=== PATIENT | female | born 1960 | race African-American/Black ===

== ENCOUNTER → 2017-11-18 | Outpatient (CLI) | payer OTHER ==
[2017-11-18 16:50] LABS: ADD MAN DIFF? NO
[2017-11-18 16:54] LABS: BASO % 0 % (0-3); EOS # 0.1 x10^3/uL (0.0-0.7); EOS % 2 % (0-3); HEMATOCRIT 41.2 % (36.0-47.0); HEMOGLOBIN 13.7 g/dL (12.0-15.5); LYMPH # 1.6 x10^3/uL (1.0-4.8); LYMPH % 23 % (24-48); MEAN CORPUSCULAR HEMOGLOBIN 28 pg (25-35); MEAN CORPUSCULAR HGB CONC 33 g/dL (31-37); MEAN CORPUSCULAR VOLUME 85 fL (79-100); MONO # 0.7 x10^3/uL (0.0-1.1); MONO % 10 % (0-9); NEUT # 4.5 x10^3uL (1.8-7.7); NEUT % 66 % (31-73); PLATELET COUNT 210 x10^3/uL (140-400); RED BLOOD COUNT 4.86 x10^6/uL (3.50-5.40); RED CELL DISTRIBUTION WIDTH 14.8 % (11.5-14.5); WHITE BLOOD COUNT 6.9 x10^3/uL (4.0-11.0)
[2017-11-18 17:10] LABS: BARBITURATES NEG (NEG); BENZODIAZEPINES NEG (NEG); CANNABINOIDS NEG (NEG); COCAINE NEG (NEG); METHADONE NEG (NEG); OPIATES NEG (NEG); PHENCYCLIDINE NEG (NEG)
[2017-11-18 17:18] LABS: AMPHETAMINE/METHAMPHETAMINE NEG (NEG); ETHANOL, URINE NEG (NEG)
[2017-11-18 17:23] LABS: ALBUMIN 3.6 g/dL (3.4-5.0); ALK PHOS 90 U/L (46-116); ALT (SGPT) 21 U/L (14-59); ANION GAP 10 (6-14); AST (SGOT) 14 U/L (15-37); BLOOD UREA NITROGEN 16 mg/dL (7-20); BUN/CREATININE RATIO 12 (6-20); CALCIUM 9.1 mg/dL (8.5-10.1); CARBON DIOXIDE 27 mmol/L (21-32); CHLORIDE 104 mmol/L (98-107); CREATININE 1.3 mg/dL (0.6-1.0); GFR 50.9; GLUCOSE 128 mg/dL (70-99); POTASSIUM 3.9 mmol/L (3.5-5.1); SODIUM 141 mmol/L (136-145); TOTAL BILIRUBIN 0.5 mg/dL (0.2-1.0); TOTAL PROTEIN 7.3 g/dL (6.4-8.2)
[2017-11-18 17:34] LABS: THYROID STIM HORMONE (TSH) 1.084 uIU/mL (0.358-3.74)
[2017-11-18 18:18] LABS: VITAMIN-B12 561 pg/mL (247-911)
== END | disposition home or self-care (01) ==
LOC: LAB 16:36
DX: R56.9 Unspecified convulsions (principal)
CPT/HCPCS: 36415; 80053; 80307; 82607; 84443; 85025

== ENCOUNTER → 2017-11-26 | Outpatient (CLI) | payer OTHER | END | disposition home or self-care (01) | LOC: RT 10:53 | DX: R56.9 Unspecified convulsions (principal); I12.9 Hypertensive chronic kidney disease with stage 1 through stage 4 chronic kidney disease, or unspecified chronic kidney disease; E11.22 Type 2 diabetes mellitus with diabetic chronic kidney disease; K21.9 Gastro-esophageal reflux disease without esophagitis; E78.5 Hyperlipidemia, unspecified | CPT/HCPCS: 95816 ==

== ENCOUNTER → 2018-04-21 | Outpatient (CLI) | payer OTHER ==
[2017-02-25 15:00] VITALS: BP 122/71
[~2018-04-21] MED LIST: AMLO10TA6 PO; AMLO1TAB95 PO; ASPI-612 PO; ATOR20TA58 PO; CLOB15CR TP; DOXY50CA PO; ERGO500027 PO; HYDR25TA PO; IBUP200C PO; LOSA-73 PO; METF500T16 PO; MULT-208 PO; SPIR100T4 PO; [UNRECOGNIZED DRUG - OTHER] TOP
--- NOTE | 2018-04-21 15:41 | RAD ---
DATE: 04/21/2018 EXAM: DIGITAL SCREEN BILAT W/CAD HISTORY: Routine screening. COMPARISON: Previous mammogram from 2015. This study was interpreted with the benefit of Computerized Aided Detection (CAD). FINDINGS: Breast Density: SCATTERED The breast parenchyma shows scattered fibroglandular densities. Breast parenchyma level B. The skin and nipples are within normal limits. No suspicious calcifications, spiculated mass or area of architectural distortion. IMPRESSION: No mammographic evidence of malignancy. BI-RADS CATEGORY: 2 BENIGN FINDING(S) RECOMMENDED FOLLOW-UP: 12M 12 MONTH FOLLOW-UP PQRS compliance statement: Patient information was entered into a reminder system with a target due date for the next mammogram. Mammography is a sensitive method for finding small breast cancers, but it does not detect them all and is not a substitute for careful clinical examination. A negative mammogram does not negate a clinically suspicious finding and should not result in delay in biopsying a clinically suspicious abnormality. "Our facility is accredited by the [employer] Mammography Program."
== END | disposition home or self-care (01) ==
LOC: MAMMO 12:48
PROVIDERS: ATTEND Nurse Practitioner
DX: Z12.31 Encounter for screening mammogram for malignant neoplasm of breast (principal)
CPT/HCPCS: 77067

== ENCOUNTER → 2018-06-02 | Outpatient (CLI) | payer OTHER ==
[2018-04-29 09:50] VITALS: BP 127/65
[~2018-06-02] MED LIST changes: +LEVE500T56 PO
--- NOTE | 2018-06-02 16:57 | RAD ---
EXAM: Carotid Doppler sonogram. HISTORY: Syncope. TECHNIQUE: Siu scale and color Doppler sonographic evaluation of the neck with spectral waveform analysis was performed and static images are submitted for review. FINDINGS: There is mild intimal thickening involving the common carotid arteries and mild atherosclerotic plaque within the carotid bifurcations. The peak systolic velocity within the right common carotid artery is 95 cm/sec. The peak systolic velocity within the right internal carotid artery is 96 cm/sec and the end diastolic velocity within the right internal carotid artery is 46 cm/sec. The right ICA/CCA ratio is 1.1. The peak systolic velocity within the left common carotid artery is 89 cm/sec. The peak systolic velocity within the left internal carotid artery is 113 cm/sec and the end diastolic velocity within the left internal carotid artery is 50 cm/sec. The left ICA/CCA ratio is 1.3. There is normal antegrade flow within both vertebral arteries. IMPRESSION: 1. Elevated and diastolic velocities within the internal carotid arteries, a finding which can be seen with 50-69% stenosis. The peak systolic velocities within the internal carotid arteries do not suggest greater than 50% stenosis. 2. Mild intimal thickening involving the common carotid arteries and mild atherosclerotic plaque within the carotid bifurcations. PQRS Compliance Statement - Stenosis calculations for CT, MR and conventional angiography are based upon measurement of the distal ICA diameter in accordance with the NASCET methodology. Stenosis calculations for carotid ultrasound studies are derived from validated velocity criteria which are known to correlate with the NASCET methodology. Electronically signed by: Barbara Vidal MD (06/02/2018 4:53 PM) [facility]
== END | disposition home or self-care (01) ==
LOC: US 15:32
PROVIDERS: ATTEND Pediatrics
DX: I70.8 Atherosclerosis of other arteries (principal)
CPT/HCPCS: 93880

== ENCOUNTER → 2018-06-03 | Outpatient (CLI) | payer OTHER ==
[2018-04-29 09:50] VITALS: BP 127/65
--- NOTE | 2018-06-06 17:39 | EEG ---
DATE OF SERVICE: 06/03/2018 EEG NUMBER: OBJECTIVE: This is a 57-year-old female patient with history of seizure or seizure-like episodes. EEG was requested to help evaluate seizure activity. METHODS: Twenty electrodes were applied according to the international 10-20 electrode placement system. EKG monitoring, hyperventilation, intermittent photic stimulation, monopolar and bipolar montages are routinely utilized. The record was obtained on a digital system with video monitoring. FINDINGS: 1. Background: The patient was recorded in the awake, drowsy, and sleep states. The overall background amplitude is 5-15 microvolts. A posterior dominant rhythm of 8-9 Hz is observed. 2. Abnormalities: No specific epileptiform discharge or electrographic seizure is seen. No focal or diffuse slowing. 3. Activation: Hyperventilation was performed with good efforts and normal response. Intermittent photic stimulation was performed with photic driving. No specific epileptiform discharge or electrographic seizure induced by hyperventilation or intermittent photic stimulation. IMPRESSION: This EEG is within the normal limits of the study for the awake, drowsy, and sleep states. No focal, lateralizing, specific epileptiform discharge or electrographic seizure is seen. ALIYAH WALTERS MD DR: CITLALLI/james JOB#: [id number] / [id number] ANGELA
== END | disposition home or self-care (01) ==
LOC: RT 09:01
PROVIDERS: ATTEND Psychiatry & Neurology Neurology
DX: R56.9 Unspecified convulsions (principal)
CPT/HCPCS: 95816

== ENCOUNTER 2018-12-13 22:44 | Emergency (ER) | payer OTHER ==
[~2018-12-13] VITALS: Ht 157.5 cm; Wt 90.7 kg
[~2018-12-13 22:44] MED LIST changes: -AMLO10TA6 PO; +AMLO10TA8 PO
[2018-12-13 23:27] LABS: BASO % 0 % (0-3); EOS # 0.1 x10^3/uL (0.0-0.7); EOS % 1 % (0-3); HEMATOCRIT 41.7 % (36.0-47.0); HEMOGLOBIN 13.9 g/dL (12.0-15.5); LYMPH # 1.8 x10^3/uL (1.0-4.8); LYMPH % 22 % (24-48); MEAN CORPUSCULAR HEMOGLOBIN 28 pg (25-35); MEAN CORPUSCULAR HGB CONC 34 g/dL (31-37); MEAN CORPUSCULAR VOLUME 83 fL (79-100); MONO # 0.8 x10^3/uL (0.0-1.1); MONO % 9 % (0-9); NEUT # 5.5 x10^3/uL (1.8-7.7); NEUT % 67 % (31-73); PLATELET COUNT 163 x10^3/uL (140-400); RED BLOOD COUNT 5.05 x10^6/uL (3.50-5.40); RED CELL DISTRIBUTION WIDTH 16.1 % (11.5-14.5); WHITE BLOOD COUNT 8.2 x10^3/uL (4.0-11.0)
[2018-12-13] MEDS ORDERED: IV NORMAL SALINE 1000ML BAG 1,000 ML IV ONE (23:30)
[2018-12-13] MEDS ORDERED: ASPIRIN 325 MG TABLET PO ONE (23:30)
[2018-12-13 23:37] LABS: PROTHROMBIN TIME PATIENT 13.4 SEC (11.7-14.0)
--- NOTE | 2018-12-13 23:52 | RAD ---
PQRS Compliance Statement: One or more of the following individualized dose reduction techniques were utilized for this examination: 1. Automated exposure control 2. Adjustment of the mA and/or kV according to patient size 3. Use of iterative reconstruction technique CT head without contrast 12/13/2018 11:24 PM INDICATION: Headache COMPARISON: CT head April 23, 2018 TECHNIQUE: Multiple axial CT images of the head were obtained from skull base through the vertex without intravenous contrast. FINDINGS: Head: Ventricles, sulci and basal cisterns are within normal limits. There is no hydrocephalus. Siu-white matter differentiation is normal. There is no acute intracranial hemorrhage. There is no mass, mass effect or midline shift. Posterior fossa is normal in appearance. Visualized portions of the orbits are normal with exception of bilateral lens replacement. Paranasal sinuses are well aerated. Mastoid air cells are well aerated. Scalp and calvaria are normal. IMPRESSION: No acute intracranial hemorrhage. Electronically signed by: Madison Hui MD (12/13/2018 11:49 PM) [facility]
[2018-12-14] MEDS ORDERED: diphenhydrAMINE 50 MG/ML VIAL IVP ONE
[2018-12-14] MEDS ORDERED: METOCLOPRAMIDE HCL 10 MG/2 ML VIAL. IV ONE
[2018-12-14] MEDS ORDERED: KETOROLAC 15 MG/ML VIAL. IV ONE
[2018-12-14] MEDS ORDERED: DEXAMETHASONE SOD PHOS 20 MG/5 ML VIAL. IV ONE
[2018-12-14] MEDS ORDERED: LABETALOL 20 MG/4 ML DISP.SYRIN. IVP ONE
[2018-12-14 00:33] LABS: CREATININE 1.3 mg/dL (0.6-1.0); GFR 50.7
[2018-12-14 00:39] LABS: ALBUMIN 3.4 g/dL (3.4-5.0); ALBUMIN/GLOBULIN RATIO 0.9 (1.0-1.7); MAGNESIUM 1.9 mg/dL (1.8-2.4); TOTAL BILIRUBIN 0.5 mg/dL (0.2-1.0); TOTAL PROTEIN 7.1 g/dL (6.4-8.2)
[2018-12-14 01:15] LABS: BILIRUBIN,URINE NEGATIVE (NEG); CLARITY,URINE CLOUDY; COLOR,URINE YELLOW; NITRITE,URINE NEGATIVE (NEG); PH,URINE 7.5; PROTEIN,URINE NEGATIVE (NEG-TRACE); UROBILINOGEN,URINE 0.2 mg/dL (0.2 mg/dL)
[2018-12-14 01:27] LABS: SQUAMOUS EPITHELIAL CELL,UR MOD /LPF
[2018-12-14 01:28] LABS: AMORPHOUS SEDIMENT,UR PRESENT /HPF; BACTERIA,URINE FEW /HPF (0-FEW); RBC,URINE RARE /HPF (0-2)
[2018-12-14 01:55] VITALS: BP 139/62
[2018-12-14] MEDS ORDERED: BUTA1TAB23 PO (02:08)
[2018-12-14] MEDS ORDERED: ONDA4TAB12 PO (02:08)
--- NOTE | 2018-12-14 02:08 | PHYS DOC ---
Past Medical History Past Medical History: Hypertension, Other Additional Past Medical Histor: hypoglycemia Past Surgical History: , Hysterectomy, Other Additional Past Surgical Histo: hiatal hernia, D&C, UMBILICAL HERNIA REPAIR A CHILD Alcohol Use: None Drug Use: None Adult General Chief Complaint Chief Complaint: HEADACHE HPI HPI Patient is a 58 year old [f__sex] who presents with [] Review of Systems Review of Systems Constitutional: Denies fever or chills [] Eyes: Denies change in visual acuity, redness, or eye pain [] HENT: Denies nasal congestion or sore throat [] Respiratory: Denies cough or shortness of breath [] Cardiovascular: No additional information not addressed in HPI [] GI: Denies abdominal pain, nausea, vomiting, bloody stools or diarrhea [] : Denies dysuria or hematuria [] Musculoskeletal: Denies back pain or joint pain [] Integument: Denies rash or skin lesions [] Neurologic: Denies headache, focal weakness or sensory changes [] Endocrine: Denies polyuria or polydipsia [] All other systems were reviewed and found to be within normal limits, except as documented in this note. Current Medications Current Medications Current Medications Medications (Trade) Dose Ordered Sig/[place] Start Time Stop Time Status Last Admin Dose Admin Aspirin (Margy Aspirin) 325 mg 1X ONCE 12/13/18 23:30 12/13/18 23:31 DC 12/13/18 23:21 325 MG Dexamethasone Sodium Phosphate (Decadron) 10 mg 1X ONCE 12/14/18 00:00 12/14/18 00:01 DC 12/14/18 00:03 10 MG Diphenhydramine HCl (Benadryl) 25 mg 1X ONCE 12/14/18 00:00 12/14/18 00:01 DC 12/14/18 00:03 25 MG Ketorolac Tromethamine (Toradol 15mg Vial) 15 mg 1X ONCE 12/14/18 00:00 12/14/18 00:01 DC 12/14/18 00:03 15 MG Labetalol HCl (Normodyne Iv Push) 10 mg 1X ONCE 12/14/18 00:00 12/14/18 00:01 DC 12/14/18 00:03 10 MG Metoclopramide HCl (Reglan Vial) 10 mg 1X ONCE 12/14/18 00:00 12/14/18 00:01 DC 12/14/18 00:03 10 MG Sodium Chloride 1,000 ml @ 1,000 mls/hr 1X ONCE 12/13/18 23:30 12/14/18 00:29 DC 12/13/18 23:21 1,000 MLS/HR Allergies Allergies Allergies Coded Allergies Type Severity Reaction Last Updated Verified codeine Allergy Intermediate 03/25/15 Yes meperidine Allergy Intermediate 07/26/14 Yes sertraline Allergy Intermediate SEI 07/26/14 Yes Physical Exam Physical Exam Constitutional: Well developed, well nourished, no acute distress, non-toxic appearance. [] HENT: Normocephalic, atraumatic, bilateral external ears normal, oropharynx moist, no oral exudates, nose normal. [] Eyes: PERRLA, EOMI, conjunctiva normal, no discharge. [] Neck: Normal range of motion, no tenderness, supple, no stridor. [] Cardiovascular:Heart rate regular rhythm, no murmur [] Lungs & Thorax: Bilateral breath sounds clear to auscultation [] Abdomen: Bowel sounds normal, soft, no tenderness, no masses, no pulsatile masses. [] Skin: Warm, dry, no erythema, no rash. [] Back: No tenderness, no CVA tenderness. [] Extremities: No tenderness, no cyanosis, no clubbing, ROM intact, no edema. [] Neurologic: Alert and oriented X 3, normal motor function, normal sensory function, no focal deficits noted. [] Psychologic: Affect normal, judgement normal, mood normal. [] Current Patient Data Vital Signs Vital Signs Date Time Temp Pulse Resp B/P (MAP) Pulse Ox O2 Delivery O2 Flow Rate FiO2 12/14/18 01:55 85 14 96 12/14/18 00:03 189/90 12/13/18 22:53 98.2 98.2 Lab Values Laboratory Tests Test 12/13/18 23:20 12/14/18 00:10 12/14/18 01:05 White Blood Count 8.2 x10^3/uL (4.0-11.0) Red Blood Count 5.05 x10^6/uL (3.50-5.40) Hemoglobin 13.9 g/dL (12.0-15.5) Hematocrit 41.7 % (36.0-47.0) Mean Corpuscular Volume 83 fL (79-100) Mean Corpuscular Hemoglobin 28 pg (25-35) Mean Corpuscular Hemoglobin Concent 34 g/dL (31-37) Red Cell Distribution Width 16.1 % (11.5-14.5) H Platelet Count 163 x10^3/uL (140-400) Neutrophils (%) (Auto) 67 % (31-73) Lymphocytes (%) (Auto) 22 % (24-48) L Monocytes (%) (Auto) 9 % (0-9) Eosinophils (%) (Auto) 1 % (0-3) Basophils (%) (Auto) 0 % (0-3) Neutrophils # (Auto) 5.5 x10^3/uL (1.8-7.7) Lymphocytes # (Auto) 1.8 x10^3/uL (1.0-4.8) Monocytes # (Auto) 0.8 x10^3/uL (0.0-1.1) Eosinophils # (Auto) 0.1 x10^3/uL (0.0-0.7) Basophils # (Auto) 0.0 x10^3/uL (0.0-0.2) Prothrombin Time 13.4 SEC (11.7-14.0) Prothrombin Time INR 1.1 (0.8-1.1) Activated Partial Thromboplast Time 23 SEC (24-38) L Sodium Level 143 mmol/L (136-145) Potassium Level 4.0 mmol/L (3.5-5.1) Chloride Level 105 mmol/L (98-107) Carbon Dioxide Level 29 mmol/L (21-32) Anion Gap 9 (6-14) Blood Urea Nitrogen 20 mg/dL (7-20) Creatinine 1.3 mg/dL (0.6-1.0) H Estimated GFR (Cockcroft-Gault) 50.7 BUN/Creatinine Ratio 15 (6-20) Glucose Level 134 mg/dL (70-99) H Calcium Level 9.0 mg/dL (8.5-10.1) Magnesium Level 1.9 mg/dL (1.8-2.4) Total Bilirubin 0.5 mg/dL (0.2-1.0) Aspartate Amino Transferase (AST) 14 U/L (15-37) L Alanine Aminotransferase (ALT) 20 U/L (14-59) Alkaline Phosphatase 89 U/L (46-116) Creatine Kinase 117 U/L (26-192) Creatine Kinase MB (Mass) 0.9 ng/mL (0.0-3.6) Creatine Kinase MB Relative Index 0.8 % (0-4) Troponin I Quantitative < 0.017 ng/mL (0.000-0.055) JJ-Rzy-I-Type Natriuretic Peptide 46 pg/mL (0-124) Total Protein 7.1 g/dL (6.4-8.2) Albumin 3.4 g/dL (3.4-5.0) Albumin/Globulin Ratio 0.9 (1.0-1.7) L Lipase 118 U/L (73-393) Urine Collection Type Unknown Urine Color Yellow Urine Clarity Cloudy Urine pH 7.5 Urine Specific [place] 1.015 Urine Protein Negative mg/dL (NEG-TRACE) Urine Glucose (UA) Negative mg/dL (NEG) Urine Ketones (Stick) Negative mg/dL (NEG) Urine Blood Negative (NEG) Urine Nitrite Negative (NEG) Urine Bilirubin Negative (NEG) Urine Urobilinogen Dipstick 0.2 mg/dL (0.2 mg/dL) Urine Leukocyte Esterase Moderate (NEG) Urine RBC Rare /HPF (0-2) Urine WBC 11-20 /HPF (0-4) Urine Squamous Epithelial Cells Mod /LPF Urine Amorphous Sediment Present /HPF Urine Bacteria Few /HPF (0-FEW) Urine Mucus Slight /LPF Laboratory Tests 12/13/18 23:20 Laboratory Tests 12/14/18 00:10 EKG EKG EKG obtained 23:04 and read 23:05. No ST-elevation noted.[] Radiology/Procedures Radiology/Procedures [] Course & Med Decision Making Course & Med Decision Making Pertinent Labs and Imaging studies reviewed. (See chart for details) [] Dragon Disclaimer Dragon Disclaimer This electronic medical record was generated, in whole or in part, using a voice recognition dictation system. Departure Departure Impression: Primary Impression: Headache Additional Impression: Atypical chest pain Disposition: HOME, SELF-CARE Condition: IMPROVED Referrals: BAUDILIO STERLING MD (PCP) Patient Instructions: Chest Pain (Nonspecific), [id number], Headache, FAQs Scripts Butalb/Acetaminophen/Caffeine ([id number] 50-325-40) 1 Each Tablet 1 EACH PO Q6HRS PRN for HEADACHE, #14 TAB Prov: JOSSELYN MARKHAM DO 12/14/18 Ondansetron (ONDANSETRON ODT) 4 Mg Tab.rapdis 1 TAB PO PRN Q6-8HRS PRN for NAUSEA, #16 TAB Prov: JOSSELYN MARKHAM DO 12/14/18 Problem Qualifiers Primary Impression: Headache Headache type: unspecified Headache chronicity pattern: acute headache Intractability: not intractable Qualified Codes: R51 - Headache JOSSELYN MARKHAM DO Dec 14, 2018 02:08
--- NOTE | 2018-12-14 06:23 | EKG ---
[facility] [address] [place] [address] Test Date: 2018-12-13 Test Time: 23:04:57 Pat Name: ANASTASIA GOLDMAN Department: Room: Gender: F [employer] Person: : 1960 Requested By: JOSSELYN MARKHAM Order Number: [id number] Reading MD: Measurements Intervals [place] Rate: 73 P: 47 CA: 176 QRS: 6 QRSD: 78 T: 51 QT: 392 QTc: 436 Interpretive Statements SINUS RHYTHM NORMAL ECG RI6.01 No previous ECG available for comparison
--- NOTE | 2018-12-14 08:07 | RAD ---
CHEST PA LATERAL History: Chest pain Comparison: 04/21/2018 portable chest x-ray exam. Findings: The cardiomediastinal silhouette is normal. Pulmonary vasculature is normal. The lungs are clear. No pleural effusion or pneumothorax is seen. There is no acute bone abnormality. IMPRESSION: No acute cardiopulmonary process. Electronically signed by: Glen Sebastian MD (12/14/2018 8:04 AM) [facility]
== END 2018-12-14 02:24 | disposition home or self-care (01) ==
LOC: ER 22:44
DX: R51 Headache (principal); R07.89 Other chest pain; I10 Essential (primary) hypertension; Z90.710 Acquired absence of both cervix and uterus; Z98.890 Other specified postprocedural states; Z79.82 Long term (current) use of aspirin; Z88.5 Allergy status to narcotic agent; Z88.8 Allergy status to other drugs, medicaments and biological substances
CPT/HCPCS: 36415; 70450; 71046; 80053; 81001; 82553; 83690; 83735; 83880; 84484; 85025; 85610; 85730; 87086; 93005; 96374; 96375; 99285; J1100; J1200; J1885; J2765; J3490; J7030

== ENCOUNTER → 2018-12-19 | Outpatient (CLI) | payer OTHER ==
[2018-12-14 01:55] VITALS: BP 139/62
[~2018-12-19] MED LIST changes: +BUTA1TAB23 PO; +ONDA4TAB12 PO
--- NOTE | 2018-12-21 14:07 | EEG ---
DATE OF SERVICE: 12/19/2018 EEG NUMBER: [id number] OBJECTIVE: This is a 58-year-old -[place] female patient with history of seizure. EEG was requested to evaluate seizure activity. METHODS: Twenty electrodes were applied according to the international 10-20 electrode placement system. EKG monitoring, hyperventilation, intermittent photic stimulation, monopolar and bipolar montages are routinely utilized. The record was obtained on a digital system with video monitoring. FINDINGS: 1. Background: The patient was recorded in the awake and drowsy states. No actual sleep state was recorded. The overall background amplitude is 5-15 microvolts. A posterior dominant rhythm of 8 Hz is observed. 2. Abnormalities: No specific epileptiform discharge or electrographic seizure is seen. No focal or diffuse slowing. 3. Activation: Hyperventilation was performed with good efforts and normal response. Intermittent photic stimulation was performed with photic driving. No specific epileptiform discharge or electrographic seizure induced by hyperventilation or intermittent photic stimulation. IMPRESSION: This EEG is a normal study for the awake and drowsy states. No actual sleep state was recorded. No focal, lateralizing, specific epileptiform discharge or electrographic seizure is seen. ALIYAH WALTERS MD DR: Bernard JOB#: [id number] / [id number] ANGELA
== END | disposition home or self-care (01) ==
LOC: RT 08:01
PROVIDERS: ATTEND Psychiatry & Neurology Neurology
DX: R56.9 Unspecified convulsions (principal)
CPT/HCPCS: 95816

== ENCOUNTER → 2019-04-24 | Outpatient (CLI) | payer OTHER ==
--- NOTE | 2019-04-24 10:19 | RAD ---
DATE: April 24, 2019 EXAM: DIGITAL SCREEN BILAT W/CAD HISTORY: Screening study. COMPARISON: 2014 and 2017 This study was interpreted with the benefit of Computerized Aided Detection (CAD). FINDINGS: Breast Density: FATTY The breast parenchyma is primarily fatty replaced. Breast parenchyma level density A.. There are no dominant suspicious masses, suspicious microcalcifications or evidence of architectural distortion. IMPRESSION: No mammographic indicators for malignancy. BI-RADS CATEGORY: 1 NEGATIVE RECOMMENDED FOLLOW-UP: 12M 12 MONTH FOLLOW-UP PQRS compliance statement: Patient information was entered into a reminder system with a target due date April 25, 2020 for the next mammogram. Mammography is a sensitive method for finding small breast cancers, but it does not detect them all and is not a substitute for careful clinical examination. A negative mammogram does not negate a clinically suspicious finding and should not result in delay in biopsying a clinically suspicious abnormality. "Our facility is accredited by the [employer] Mammography Program." The patient's breast density may affect the ability of mammography to detect breast cancer. There are 4 categories of breast density, A, B, C and D. Breast density A means that most of the breast tissue is replaced with adipose tissue and therefore is not dense. Breast density B means that the breast tissue is mildly dense and scattered. Breast density C means that the breast tissue is heterogeneously dense. Breast density D means that the breast tissue is very dense. Breast densities especially C and D may decrease the sensitivity of mammography to detect breast cancer. Therefore, the patient may benefit from 3-D breast mammography (3D breast tomography) as a part of their screening mammogram. Insurance may or may not pay for this additional imaging. The patient's breast density based on today's mammogram is category A.
== END | disposition home or self-care (01) ==
LOC: MAMMO 09:47
PROVIDERS: ATTEND Nurse Practitioner
DX: Z12.31 Encounter for screening mammogram for malignant neoplasm of breast (principal)
CPT/HCPCS: 77067

== ENCOUNTER 2020-01-03 18:35 | Inpatient (IN) | payer OTHER ==
[~2020-01-03] VITALS: Ht 160 cm; Wt 100.8 kg
[~2020-01-03 18:35] MED LIST changes: -ASPI-612 PO; +ASPI-886 PO
--- NOTE | 2020-01-03 22:31 | PHYS DOC ---
Past Medical History Past Medical History: CAD, High Cholesterol, Hypertension, Seizure, Other Additional Past Medical Histor: hypoglycemia Past Surgical History: , Hysterectomy, Other Additional Past Surgical Histo: hiatal hernia, D&C, UMBILICAL HERNIA REPAIR A CHILD Smoking Status: Never Smoker Alcohol Use: None Drug Use: None General Adult EDM: Chief Complaint: NAUSEA/VOMITING/DIARRHA HPI: HPI: Patient is a 59 year old female who presents with 2 days of nausea and vomiting and cold chills. She states she is unable to keep anything down. Patient denies abdominal pain, diarrhea, constipation, dysuria, back pain, dizziness, headache, syncope, vision changes, numbness or tingling, shortness of breath, cough. She states that she also has been having mid chest pressure. Patient states nothing better. She states that she has had a cardiac cath in the past and they told her that she had small veins in her heart. Patient has a history of high cholesterol, hypertension, CAD, hypoglycemia, seizure, hysterectomy, hiatal hernia. She rates her discomfort at a 8 out of 10. Review of Systems: Review of Systems: Constitutional: Denies fever. + chills. [] Eyes: Denies change in visual acuity. [] HENT: Denies nasal congestion or sore throat. [] Respiratory: Denies cough or shortness of breath. [] Cardiovascular: Mid chest pain or denies edema. [] GI: Denies abdominal pain. + nausea, +vomiting, denies bloody stools or diarrhea. [] : Denies dysuria. [] Musculoskeletal: Denies back pain or joint pain. Generalized weakness [] Integument: Denies rash. [] Neurologic: Denies headache, focal weakness or sensory changes. [] Endocrine: Denies polyuria or polydipsia. [] Lymphatic: Denies swollen glands. [] Psychiatric: Denies depression or anxiety. [] Heart Score: HEART Score for Chest Pain: HEART Score for Chest Pain Response (Comments) Value History Slighlty/Non-Suspicious 0 ECG Normal 0 Age >45 - < 65 1 Risk Factors >3 Risk Factors or Hx CAD 2 Troponin < Normal Limit 0 Total 3 Risk Factors: Risk Factors: DM, Current or recent (<one month) smoker, HTN, HLP, family history of CAD, obesity. Risk Scores: Score 0 - 3: 2.5% MACE over next 6 weeks - Discharge Home Score 4 - 6: 20.3% MACE over next 6 weeks - Admit for Clinical Observation Score 7 - 10: 72.7% MACE over next 6 weeks - Early Invasive Strategies Allergies: Allergies: Allergies Coded Allergies Type Severity Reaction Last Updated Verified codeine Allergy Intermediate 03/25/15 Yes meperidine Allergy Intermediate 07/26/14 Yes sertraline Allergy Intermediate SEI 07/26/14 Yes Physical Exam: PE: Constitutional: Well developed, well nourished, no acute distress, non-toxic appearance. [] HENT: Normocephalic, atraumatic, bilateral external ears normal, oropharynx moist, no oral exudates, nose normal. [] Eyes: PERRLA, EOMI, conjunctiva normal, no discharge. [] Neck: Normal range of motion, no tenderness, supple, no stridor. [] Cardiovascular:Heart rate regular rhythm, no murmur [] Lungs & Thorax: Bilateral upper breath sounds clear and lower diminished to auscultation [] Abdomen: Bowel sounds normal, soft, no tenderness, no masses, no pulsatile masses. [] Skin: Warm, dry, no erythema, no rash. [] Back: No tenderness, no CVA tenderness. [] Extremities: No tenderness, no cyanosis, no clubbing, ROM intact, no edema. [] Neurologic: Alert and oriented X 3, normal motor function, normal sensory function, no focal deficits noted. [] Psychologic: Affect normal, judgement normal, mood normal. [] Current Patient Data: Vital Signs: Vital Signs Date Time Temp Pulse Resp B/P (MAP) Pulse Ox O2 Delivery O2 Flow Rate FiO2 01/03/20 20:00 98.2 76 18 156/84 (108) 98 Room Air 98.2 EKG: EK and read by Dr Bustamante as NSR and no STEMI[] Radiology/Procedures: Radiology/Procedures: [] Impression: [facility] [address] [place] [address] IMAGING REPORT Signed PATIENT: ANASTASIA GOLDMAN EACCOUNT: [id number] : 1960 LOCATION: ER AGE: 59 SEX: F EXAM STATUS: REG ER ORD. PHYSICIAN: RASHAD LIANG APRN REASON: NAUSEA, VOMITING PROCEDURE: CT ABD PELV W/ IV CONTRST ONLY Study: CT abdomen/pelvis with intravenous contrast Indication: Nausea and vomiting. Comparison: None recently. Technique: Helical CT imaging performed of the abdomen and pelvis after the intravenous administration of 60 cc Omnipaque 300 contrast. Sagittal and coronal reformats were obtained. One or more of the following individualized dose reduction techniques were utilized for this examination: 1. Automated exposure control 2. Adjustment of the mA and/or kV according to patient size 3. Use of iterative reconstruction technique. Findings: Chest: Mild basilar volume loss. Liver: Hepatic steatosis. Gallbladder/Biliary Tree: No findings by CT to suggest acute cholecystitis. Pancreas: No mass, ductal dilatation or findings of pancreatitis. Spleen: Normal in size. Adrenal Glands: Unremarkable. Kidneys/Ureters/Bladder: No complex cyst or mass. A small focus of mineralization within the right aspect of the deep pelvis, image 75 series 2, is favored a phlebolith and located anterior to the ureter. No collecting system dilatation on the right to suggest an obstructing stone. Unremarkable left collecting system. Normal bladder. Reproductive Organs: Absent uterus. No adnexal mass. Colon: A few diverticuli without diverticulitis. Wall thickening of the descending colon favored from collapse. No pericolonic inflammation to suggest a colitis. Appendix: Normal. Small Bowel: Nonobstructed. Stomach: Unremarkable. Vasculature: Nonaneurysmal aorta. Mild calcific atherosclerosis. Patent central portal veins and superior mesenteric vein. Lymph Nodes: Within normal limits. Peritoneum and Body Wall: No free fluid or gas. Bones: Scattered degenerative changes. No acute or aggressive osseous process. Miscellaneous: None. Impression: 1. No acute abnormality seen to account for the patient's symptoms. 2. Hepatic steatosis. Electronically signed by: HELENE GRAF MD (01/04/2020 12:40 AM) [id number] DICTATED and SIGNED BY: HELENE GRAF MD DATE: 01/04/20 0040 Course & Med Decision Making: Course & Med Decision Making Pertinent Labs and Imaging studies reviewed. (See chart for details) COVID-19 CRITERIA: The patient was evaluated during the global COVID-19 pandemic, and that diagnosis was suspected/considered upon their initial present ation. Their evaluation, treatment and testing was consistent with current guidelines for patients who present with complaints or symptoms that may be related to COVID-19. See HPI. Alert and oriented x4. She states she is too weak to ambulate. Speaks in full clear sentences. No extremity edema. Abdomen is soft and nontender. Skin is pink warm and dry. Blood work shows no acute findings. Chest xray read by Dr Bustamante as no acute findings. CT abdomen pelvis shows no acute findings. Due to patient's weakness and continued nausea and vomiting and chest pain with a history of CAD patient will be admitted to the hospitalist. [] Dragon Disclaimer: Dragon Disclaimer: This electronic medical record was generated, in whole or in part, using a voice recognition dictation system. COVID-19 Patient Risks: Age 65 or older: No Sign of co-morbidity: Yes Exp to person + for COVID: No Exp to PUI: No Travel from affected area: No Lower respiratory symptoms: No Fever: No Other: Yes (nausea, vomiting, chills) PPE Use: Full PPE with N95 mask or PAPR: Yes Departure Departure Impression: Primary Impression: Person under investigation for COVID-19 Additional Impressions: Vomiting Qualified Codes: R11.2 - Nausea with vomiting, unspecified Chest pain Qualified Codes: R07.9 - Chest pain, unspecified Disposition: 09 ADMITTED INPATIENT Admitting Physician: ANISA Condition: STABLE Referrals: BAUDILIO STERLING MD (PCP) Justicifation of Admission Dx: Justifications for Admission: Justification of Admission Dx: Yes Comments: chest pain RASHAD LIANG ENGINEERING DIRECTOR Jan 03, 2020 22:31
[2020-01-03] MEDS ORDERED: FAMOTIDINE 20 MG/2 ML VIAL IVP ONE (23:00)
[2020-01-03] MEDS ORDERED: ONDANSETRON PF 4 MG/2 ML VIAL. IVP ONE (23:00)
[2020-01-03] MEDS ORDERED: IV NORMAL SALINE 1000ML BAG 1,000 ML IV ONE (23:00)
[2020-01-03 23:11] LABS: BASO % 0 % (0-3); EOS % 0 % (0-3); HEMATOCRIT 44.1 % (36.0-47.0); HEMOGLOBIN 15.1 g/dL (12.0-15.5); LYMPH # 1.2 x10^3/uL (1.0-4.8); LYMPH % 15 % (24-48); MEAN CORPUSCULAR HEMOGLOBIN 29 pg (25-35); MEAN CORPUSCULAR HGB CONC 34 g/dL (31-37); MEAN CORPUSCULAR VOLUME 84 fL (79-100); MONO # 0.4 x10^3/uL (0.0-1.1); MONO % 5 % (0-9); NEUT # 6.1 x10^3/uL (1.8-7.7); NEUT % 80 % (31-73); PLATELET COUNT 190 x10^3/uL (140-400); RED BLOOD COUNT 5.29 x10^6/uL (3.50-5.40); RED CELL DISTRIBUTION WIDTH 15.3 % (11.5-14.5); WHITE BLOOD COUNT 7.7 x10^3/uL (4.0-11.0)
[2020-01-03 23:20] LABS: CALCIUM 9.2 mg/dL (8.5-10.1); CREATININE 1.2 mg/dL (0.6-1.0); GFR 55.4; POTASSIUM 3.9 mmol/L (3.5-5.1); PROTHROMBIN TIME PATIENT 13.2 SEC (11.7-14.0)
[2020-01-03 23:26] LABS: ALBUMIN 3.6 g/dL (3.4-5.0); ALBUMIN/GLOBULIN RATIO 0.9 (1.0-1.7); TOTAL BILIRUBIN 0.4 mg/dL (0.2-1.0); TOTAL PROTEIN 7.7 g/dL (6.4-8.2)
[2020-01-03] MEDS ORDERED: CONTRAST GIVEN. MC PRN (23:45)
[2020-01-04] MEDS ORDERED: IOHEXOL 300 MG/ML 100ML VIAL. IV ONE
--- NOTE | 2020-01-04 00:43 | RAD ---
Study: CT abdomen/pelvis with intravenous contrast Indication: Nausea and vomiting. Comparison: None recently. Technique: Helical CT imaging performed of the abdomen and pelvis after the intravenous administration of 60 cc Omnipaque 300 contrast. Sagittal and coronal reformats were obtained. One or more of the following individualized dose reduction techniques were utilized for this examination: 1. Automated exposure control 2. Adjustment of the mA and/or kV according to patient size 3. Use of iterative reconstruction technique. Findings: Chest: Mild basilar volume loss. Liver: Hepatic steatosis. Gallbladder/Biliary Tree: No findings by CT to suggest acute cholecystitis. Pancreas: No mass, ductal dilatation or findings of pancreatitis. Spleen: Normal in size. Adrenal Glands: Unremarkable. Kidneys/Ureters/Bladder: No complex cyst or mass. A small focus of mineralization within the right aspect of the deep pelvis, image 75 series 2, is favored a phlebolith and located anterior to the ureter. No collecting system dilatation on the right to suggest an obstructing stone. Unremarkable left collecting system. Normal bladder. Reproductive Organs: Absent uterus. No adnexal mass. Colon: A few diverticuli without diverticulitis. Wall thickening of the descending colon favored from collapse. No pericolonic inflammation to suggest a colitis. Appendix: Normal. Small Bowel: Nonobstructed. Stomach: Unremarkable. Vasculature: Nonaneurysmal aorta. Mild calcific atherosclerosis. Patent central portal veins and superior mesenteric vein. Lymph Nodes: Within normal limits. Peritoneum and Body Wall: No free fluid or gas. Bones: Scattered degenerative changes. No acute or aggressive osseous process. Miscellaneous: None. Impression: 1. No acute abnormality seen to account for the patient's symptoms. 2. Hepatic steatosis. Electronically signed by: EHLENE GRAF MD (01/04/2020 12:40 AM) [id number]
[2020-01-04] MEDS ORDERED: ONDANSETRON PF 4 MG/2 ML VIAL. IV PRN (01:00)
[2020-01-04 01:18] LABS: BILIRUBIN,URINE NEGATIVE (NEG); CLARITY,URINE CLEAR; COLOR,URINE YELLOW; NITRITE,URINE NEGATIVE (NEG); PH,URINE 7.5 (<5.0-8.0); PROTEIN,URINE NEGATIVE (NEG-TRACE); UROBILINOGEN,URINE 0.2 mg/dL (0.2 mg/dL)
[2020-01-04 01:22] LABS: BACTERIA,URINE MANY /HPF (0-FEW); RBC,URINE OCC /HPF (0-2); SQUAMOUS EPITHELIAL CELL,UR MANY /LPF; WBC,URINE 20-40 /HPF (0-4)
[2020-01-04 01:25] LABS: AMPHETAMINE/METHAMPHETAMINE NEG (NEG); BARBITURATES NEG (NEG); BENZODIAZEPINES NEG (NEG); CANNABINOIDS NEG (NEG); COCAINE NEG (NEG); METHADONE NEG (NEG); OPIATES NEG (NEG); PHENCYCLIDINE NEG (NEG)
[2020-01-04] MEDS ORDERED: ASPIRIN CHEWABLE 81 MG TABLET. PO ONE (01:30)
[2020-01-04] MEDS: IV NORMAL SALINE 1000ML BAG 1,000 ML IV SCH ×3 (02:23→21:00)
[2020-01-04] MEDS ORDERED: LEVE750T8 PO (02:39)
[2020-01-04] MEDS ORDERED: GABA300C9 PO (02:39)
[2020-01-04] MEDS ORDERED: METO25TA4 PO (02:39)
[2020-01-04] MEDS ORDERED: ROSU20TA28 PO (02:39)
[2020-01-04] MEDS ORDERED: RANO10004 PO (02:39)
[2020-01-04] MEDS ORDERED: CYCL5TAB PO (02:39)
[2020-01-04 03:37] VITALS: BP 144/65
--- NOTE | 2020-01-04 03:56 | RAD ---
Study: CR PORTABLE CHEST 1V Indication: Chest pain. Comparison: 12/13/2018 Findings: Low lung volumes with bronchovascular crowding. Within normal limits cardiomediastinal silhouette given AP technique. No confluent infiltrate, layering effusion or pneumothorax. Small focus of hydroxyapatite deposition within the right rotator cuff adjacent to the greater tuberosity. Impression: No acute radiographic abnormality of the chest. Electronically signed by: HELENE GRAF MD (01/04/2020 3:53 AM) [id number]
--- NOTE | 2020-01-04 05:22 | EKG ---
[facility] [address] [place] [address] Test Date: 2020-01-03 Test Time: 20:20:57 Pat Name: ANASTASIA GOLDMAN Department: Room: Gender: F [employer] Analyst: : 1960 Requested By: RASHAD LIANG Order Number: [id number] Reading MD: Measurements Intervals [place] Rate: 61 P: 34 LA: 156 QRS: 12 QRSD: 88 T: 33 QT: 412 QTc: 416 Interpretive Statements SINUS RHYTHM NORMAL ECG RI6.02 No previous ECG available for comparison
[2020-01-04 07:00] VITALS: BP 140/62
--- NOTE | 2020-01-04 09:10 | PDOC2 ---
GI CONSULT Date of Service: DATE: 01/04/20 TIME: 09:09 Reason For Consult: n/v HPI: HPI: 59 y/o female admitted through ER. Ill x 2 days w/ vomiting, sweating, and w eakness - could not get to restroom, had to help her, had to use a wheelchair. Also reports numbness from mouth to toes on left side yesterday. Feels better today except feels weak because she's hungry. Denies precipitating events except that her neurologist has been lowering dose of Keppra recently. Denies reflux/heartburn, dysphagia, chronic n/v, hematemesis, abd pain, diarrhea, hematochezia, melena, change in appetite, or weight loss. Has occasional constipation that is not concerning for her. EGD on 08/11/06 w/ Dr. Lira for atypical chest pain showed minimal prepyloric gastritis and small hiatal hernia. Empiric esophageal dilation was performed. Colonoscopy on 08/07/14 w/ Dr. Radha Samayoa for screening was reportedly normal. Diverticulosis on CT. H/o Hep C from blood transfusion - says successfully treated w/ interferon. Hepatic steatosis on imaging. No GB, pancreas, or PUD history. No NSAIDs - does take ASA 81mg QD. PMH: PMH: HTN, seizures, anxiety, DM (but no longer treated), Hep C (treated) umbilical hernia repair, D&C, x 3, hysterectomy FH: Family History: Cancer (grandmother - breast) Social History: Smoke: No ALCOHOL: none Drugs: None ROS: GEN: +sweats HEENT: Denies blurred vision, sore throat CV: Denies chest pain RESP: Denies shortness of air, cough GI: Per HPI : Denies hematuria, dysuria ENDO: +weight gain NEURO: +numbness MSK: +weakness SKIN: Denies jaundice, pruritus Vitals: Vitals: Vital Signs Date Time Temp Pulse Resp B/P (MAP) Pulse Ox O2 Delivery O2 Flow Rate FiO2 01/04/20 08:04 Room Air 01/04/20 03:37 97.0 69 14 144/65 (91) 99 97.0 Labs: Labs: Laboratory Tests Test 01/03/20 23:03 01/04/20 01:00 White Blood Count 7.7 x10^3/uL (4.0-11.0) Red Blood Count 5.29 x10^6/uL (3.50-5.40) Hemoglobin 15.1 g/dL (12.0-15.5) Hematocrit 44.1 % (36.0-47.0) Mean Corpuscular Volume 84 fL (79-100) Mean Corpuscular Hemoglobin 29 pg (25-35) Mean Corpuscular Hemoglobin Concent 34 g/dL (31-37) Red Cell Distribution Width 15.3 % (11.5-14.5) Platelet Count 190 x10^3/uL (140-400) Neutrophils (%) (Auto) 80 % (31-73) Lymphocytes (%) (Auto) 15 % (24-48) Monocytes (%) (Auto) 5 % (0-9) Eosinophils (%) (Auto) 0 % (0-3) Basophils (%) (Auto) 0 % (0-3) Neutrophils # (Auto) 6.1 x10^3/uL (1.8-7.7) Lymphocytes # (Auto) 1.2 x10^3/uL (1.0-4.8) Monocytes # (Auto) 0.4 x10^3/uL (0.0-1.1) Eosinophils # (Auto) 0.0 x10^3/uL (0.0-0.7) Basophils # (Auto) 0.0 x10^3/uL (0.0-0.2) Prothrombin Time 13.2 SEC (11.7-14.0) Prothromb Time International Ratio 1.0 (0.8-1.1) Sodium Level 142 mmol/L (136-145) Potassium Level 3.9 mmol/L (3.5-5.1) Chloride Level 106 mmol/L (98-107) Carbon Dioxide Level 27 mmol/L (21-32) Anion Gap 9 (6-14) Blood Urea Nitrogen 12 mg/dL (7-20) Creatinine 1.2 mg/dL (0.6-1.0) Estimated GFR (Cockcroft-Gault) 55.4 BUN/Creatinine Ratio 10 (6-20) Glucose Level 137 mg/dL (70-99) Calcium Level 9.2 mg/dL (8.5-10.1) Total Bilirubin 0.4 mg/dL (0.2-1.0) Aspartate Amino Transf (AST/SGOT) 19 U/L (15-37) Alanine Aminotransferase (ALT/SGPT) 25 U/L (14-59) Alkaline Phosphatase 86 U/L (46-116) Troponin I Quantitative < 0.017 ng/mL (0.000-0.055) Total Protein 7.7 g/dL (6.4-8.2) Albumin 3.6 g/dL (3.4-5.0) Albumin/Globulin Ratio 0.9 (1.0-1.7) Lipase 189 U/L (73-393) Urine Collection Type Unknown Urine Color Yellow Urine Clarity Clear Urine pH 7.5 (<5.0-8.0) Urine Specific [place] 1.025 (1.000-1.030) Urine Protein Negative mg/dL (NEG-TRACE) Urine Glucose (UA) Negative mg/dL (NEG) Urine Ketones (Stick) Negative mg/dL (NEG) Urine Blood Negative (NEG) Urine Nitrite Negative (NEG) Urine Bilirubin Negative (NEG) Urine Urobilinogen Dipstick 0.2 mg/dL (0.2 mg/dL) Urine Leukocyte Esterase Large (NEG) Urine RBC Occ /HPF (0-2) Urine WBC 20-40 /HPF (0-4) Urine Squamous Epithelial Cells Many /LPF Urine Bacteria Many /HPF (0-FEW) Urine Mucus Mod /LPF Urine Opiates Screen Neg (NEG) Urine Methadone Screen Neg (NEG) Urine Barbiturates Neg (NEG) Urine Phencyclidine Screen Neg (NEG) Urine Amphetamine/Methamphetamine Neg (NEG) Urine Benzodiazepines Screen Neg (NEG) Urine Cocaine Screen Neg (NEG) Urine Cannabinoids Screen Neg (NEG) Urine Ethyl Alcohol Neg (NEG) Allergies: Coded Allergies: codeine (Verified Allergy, Intermediate, 03/25/15) meperidine (Verified Allergy, Intermediate, 07/26/14) sertraline (Verified Allergy, Intermediate, SEI, 07/26/14) Medications: Current Medications Medications (Trade) Dose Ordered Sig/[place] Route PRN Reason Start Time Stop Time Status Last Admin Dose Admin Ondansetron HCl (Zofran) 4 mg 1X ONCE IVP 01/03/20 23:00 01/03/20 23:01 DC 01/03/20 23:09 Famotidine (Pepcid Vial) 20 mg 1X ONCE IVP 01/03/20 23:00 01/03/20 23:01 DC 01/03/20 23:10 Sodium Chloride 1,000 ml @ 1,000 mls/hr 1X ONCE IV 01/03/20 23:00 01/03/20 23:59 DC 01/03/20 23:00 Iohexol (Omnipaque 300 Mg/ml) 60 ml 1X ONCE IV 01/04/20 00:00 01/04/20 00:01 DC 01/03/20 23:51 Sodium Chloride 1,000 ml @ 100 mls/hr Q10H IV 01/04/20 01:00 01/05/20 00:59 01/04/20 02:23 Aspirin (Aspirin Chewable) 324 mg 1X ONCE PO 01/04/20 01:30 01/04/20 01:31 DC 01/04/20 02:23 Imaging: Imaging: CXR Impression: No acute radiographic abnormality of the chest. CT A/P Impression: 1. No acute abnormality seen to account for the patient's symptoms. 2. Hepatic steatosis. PE: GEN: NAD HEENT: Atraumatic, PERRL LUNGS: CTAB HEART: RRR ABD: NABS, S/ND/NT EXTREMITY: No edema SKIN: No rashes, no jaundice NEURO/PSYCH: A & O 3 A/P: A/P: N/v, sweats, weakness ?UTI CRC screen - UTD Diverticulosis H/o Hep C - treated Hepatic steatosis R/o COVID-19 -- Try clears, ADAT, observe. Continue acid-edge dyer - IV for now, switch to PO as able. GERTRUDE BELL Jan 04, 2020 09:10
--- NOTE | 2020-01-04 09:39 | PDOC1 ---
History and Physical Date of Service: DOS: DATE: 01/04/20 TIME: 09:37 Chief Complaint: Chief Complain: Nausea vomiting History of Present Illness: HPI: Patient is a 59-year-old female with past medical history of CAD with possible small vessel disease, dyslipidemia, hypertension, seizure tics, who presents with 2 days of nausea vomiting and diaphoresis and weakness. She states that she is not able to keep any food down and therefore she needed to her to help her get into the car and come to the ED because of her weakness. She also did complain of some numbness on her left side of her mouth to her toes yesterday. This has improved. Patient does endorse appetite however she does not report any recent weight loss. Denies fevers, chest pain, abdominal pain, diarrhea, constipation, dysuria, or syncope. EGD on 08/11/06 w/ Dr. Lira for atypical chest pain showed minimal prepyloric gastritis and small hiatal hernia. Empiric esophageal dilation was performed. Colonoscopy on 08/07/14 w/ Dr. Radha Samayoa for screening was reportedly normal. Diverticulosis on CT. H/o Hep C from blood transfusion - says successfully treated w/ interferon. Hepatic steatosis on imaging. Past Medical/Surgical History: PMH/PSH: Past Medical History: CAD, High Cholesterol, Hypertension, Seizure Past Surgical History: , Hysterectomy hiatal hernia, D&C, UMBILICAL HERNIA REPAIR A CHILD Allergies: Allergies: Coded Allergies: codeine (Verified Allergy, Intermediate, 03/25/15) meperidine (Verified Allergy, Intermediate, 07/26/14) sertraline (Verified Allergy, Intermediate, SEI, 07/26/14) Family History: Family History: Reviewed and none reported Social History: Social History: Smoking Status: Never Smoker Alcohol Use: None Drug Use: None Current Medications: Current Medications Current Medications Ondansetron HCl (Zofran) 4 mg 1X ONCE IVP Last administered on 01/03/20at 23:09; Start 01/03/20 at 23:00; Stop 01/03/20 at 23:01; Status DC Famotidine (Pepcid Vial) 20 mg 1X ONCE IVP Last administered on 01/03/20at 23:10; Start 01/03/20 at 23:00; Stop 01/03/20 at 23:01; Status DC Sodium Chloride 1,000 ml @ 1,000 mls/hr 1X ONCE IV Last administered on 01/03/20at 23:00; Start 01/03/20 at 23:00; Stop 01/03/20 at 23:59; Status DC Iohexol (Omnipaque 300 Mg/ml) 60 ml 1X ONCE IV Last administered on 01/03/20at 23:51; Start 01/04/20 at 00:00; Stop 01/04/20 at 00:01; Status DC Info (CONTRAST GIVEN -- Rx MONITORING) 1 each PRN DAILY PRN MC SEE COMMENTS; Start 01/03/20 at 23:45; Stop 01/05/20 at 23:44 Ondansetron HCl (Zofran) 4 mg PRN Q8HRS PRN IV NAUSEA/VOMITING 1ST CHOICE; Start 01/04/20 at 01:00; Stop 01/05/20 at 00:59 Sodium Chloride 1,000 ml @ 100 mls/hr Q10H IV Last administered on 01/04/20at 02:23; Start 01/04/20 at 01:00; Stop 01/05/20 at 00:59 Aspirin (Aspirin Chewable) 324 mg 1X ONCE PO Last administered on 01/04/20at 02:23; Start 01/04/20 at 01:30; Stop 01/04/20 at 01:31; Status DC Active Scripts Active Kalgpf-Otcjbsky-Jxfs 50-325-40 (Butalb/Acetaminophen/Caffeine) 1 Each Tablet 1 Each PO Q6HRS PRN Aspirin Ec (Aspirin) 81 Mg Tablet. 81 Mg PO DAILYWBKFT 30 Days Reported Levetiracetam 750 Mg Tablet 1 Tab PO BID Cyclobenzaprine Hcl 5 Mg Tablet 5 Mg PO BID Rosuvastatin Calcium 20 Mg Tablet 1 Tab PO DAILY Gabapentin 300 Mg Capsule 300 Mg PO BID Metoprolol Tartrate 25 Mg Tablet 1 Tab PO BID Ranolazine ER (Ranolazine) 1,000 Mg Tab.er.12h 1,000 Mg PO BID ROS: Review of Systems Review of System REVIEW OF SYSTEMS: GENERAL: Denies weakness SKIN: No bruising, hair changes or rashes. EYES: No blurred, double or loss of vision. NOSE AND THROAT: No history of nosebleeds, hoarseness or sore throat. HEART: No history of palpitations, chest pain or shortness of breath on exertion. LUNGS: Denies cough, hemoptysis, wheezing or shortness of breath. GASTROINTESTINAL: Denies changes in appetite, nausea, vomiting, diarrhea or constipation. GENITOURINARY: No history of frequency, urgency, hesitancy or nocturia. NEUROLOGIC: Denies history of numbness, tingling, or tremor. PSYCHIATRIC: No history of panic, anxiety or depression. ENDOCRINE: No history of heat or cold intolerance, polyuria or polydipsia. EXTREMITIES: Denies joint pain, pain on walking or stiffness. Physical Exam: Vital Signs: Vital Signs Date Time Temp Pulse Resp B/P (MAP) Pulse Ox O2 Delivery O2 Flow Rate FiO2 01/04/20 08:04 Room Air 01/04/20 03:37 97.0 69 14 144/65 (91) 99 97.0 Physcial Exam: GEN: No apparent distress. Alert and oriented HEENT: Normal cephalic, atraumatic, external auditory canals are patent EYES: Extraocular muscles are intact, pupil are equally round and reactive to light and accommodation MUSCULOSKELETAL: Well developed , well nourished, good range of motion ENDOCRINE: No thyromegaly was palpated LYMPHATICS: No cervical chain or axillary nodes were noted HEMATOPOIETIC: No bruising NECK: Supple, no JVD, no thyromegaly was noted LUNGS: Clear to auscultation in all lung marinelli without rhonchi or wheezing HEART: RRR, S!, S2 present. Peripheral pulses intact, no obvious murmurs noted ABDOMEN: Soft, nontender. Positive bowel sounds, no organomegaly, normal bowel sounds EXTREMITIES: Without clubbing, cyanosis, or edema. Pedal pulses intact. Negative Homans sign NEUROLOGIC: Normal speech and tone. A&O x 3, moves all extremities, no obvious focal deficits PSYCHIATRIC: Normal affect, normal mood. Stable SKIN: No ulcerations or rashes, good skin turgor, no jaundice VASCULAR: Good capillary refill, neurovascular bundle appears to be intact Labs: Labs: Laboratory Tests Test 01/03/20 23:03 01/04/20 01:00 White Blood Count 7.7 x10^3/uL (4.0-11.0) Red Blood Count 5.29 x10^6/uL (3.50-5.40) Hemoglobin 15.1 g/dL (12.0-15.5) Hematocrit 44.1 % (36.0-47.0) Mean Corpuscular Volume 84 fL (79-100) Mean Corpuscular Hemoglobin 29 pg (25-35) Mean Corpuscular Hemoglobin Concent 34 g/dL (31-37) Red Cell Distribution Width 15.3 % (11.5-14.5) Platelet Count 190 x10^3/uL (140-400) Neutrophils (%) (Auto) 80 % (31-73) Lymphocytes (%) (Auto) 15 % (24-48) Monocytes (%) (Auto) 5 % (0-9) Eosinophils (%) (Auto) 0 % (0-3) Basophils (%) (Auto) 0 % (0-3) Neutrophils # (Auto) 6.1 x10^3/uL (1.8-7.7) Lymphocytes # (Auto) 1.2 x10^3/uL (1.0-4.8) Monocytes # (Auto) 0.4 x10^3/uL (0.0-1.1) Eosinophils # (Auto) 0.0 x10^3/uL (0.0-0.7) Basophils # (Auto) 0.0 x10^3/uL (0.0-0.2) Prothrombin Time 13.2 SEC (11.7-14.0) Prothromb Time International Ratio 1.0 (0.8-1.1) Sodium Level 142 mmol/L (136-145) Potassium Level 3.9 mmol/L (3.5-5.1) Chloride Level 106 mmol/L (98-107) Carbon Dioxide Level 27 mmol/L (21-32) Anion Gap 9 (6-14) Blood Urea Nitrogen 12 mg/dL (7-20) Creatinine 1.2 mg/dL (0.6-1.0) Estimated GFR (Cockcroft-Gault) 55.4 BUN/Creatinine Ratio 10 (6-20) Glucose Level 137 mg/dL (70-99) Calcium Level 9.2 mg/dL (8.5-10.1) Total Bilirubin 0.4 mg/dL (0.2-1.0) Aspartate Amino Transf (AST/SGOT) 19 U/L (15-37) Alanine Aminotransferase (ALT/SGPT) 25 U/L (14-59) Alkaline Phosphatase 86 U/L (46-116) Troponin I Quantitative < 0.017 ng/mL (0.000-0.055) Total Protein 7.7 g/dL (6.4-8.2) Albumin 3.6 g/dL (3.4-5.0) Albumin/Globulin Ratio 0.9 (1.0-1.7) Lipase 189 U/L (73-393) Urine Collection Type Unknown Urine Color Yellow Urine Clarity Clear Urine pH 7.5 (<5.0-8.0) Urine Specific [place] 1.025 (1.000-1.030) Urine Protein Negative mg/dL (NEG-TRACE) Urine Glucose (UA) Negative mg/dL (NEG) Urine Ketones (Stick) Negative mg/dL (NEG) Urine Blood Negative (NEG) Urine Nitrite Negative (NEG) Urine Bilirubin Negative (NEG) Urine Urobilinogen Dipstick 0.2 mg/dL (0.2 mg/dL) Urine Leukocyte Esterase Large (NEG) Urine RBC Occ /HPF (0-2) Urine WBC 20-40 /HPF (0-4) Urine Squamous Epithelial Cells Many /LPF Urine Bacteria Many /HPF (0-FEW) Urine Mucus Mod /LPF Urine Opiates Screen Neg (NEG) Urine Methadone Screen Neg (NEG) Urine Barbiturates Neg (NEG) Urine Phencyclidine Screen Neg (NEG) Urine Amphetamine/Methamphetamine Neg (NEG) Urine Benzodiazepines Screen Neg (NEG) Urine Cocaine Screen Neg (NEG) Urine Cannabinoids Screen Neg (NEG) Urine Ethyl Alcohol Neg (NEG) Laboratory Tests Test 01/03/20 23:03 01/04/20 01:00 White Blood Count 7.7 x10^3/uL (4.0-11.0) Red Blood Count 5.29 x10^6/uL (3.50-5.40) Hemoglobin 15.1 g/dL (12.0-15.5) Hematocrit 44.1 % (36.0-47.0) Mean Corpuscular Volume 84 fL (79-100) Mean Corpuscular Hemoglobin 29 pg (25-35) Mean Corpuscular Hemoglobin Concent 34 g/dL (31-37) Red Cell Distribution Width 15.3 % (11.5-14.5) Platelet Count 190 x10^3/uL (140-400) Neutrophils (%) (Auto) 80 % (31-73) Lymphocytes (%) (Auto) 15 % (24-48) Monocytes (%) (Auto) 5 % (0-9) Eosinophils (%) (Auto) 0 % (0-3) Basophils (%) (Auto) 0 % (0-3) Neutrophils # (Auto) 6.1 x10^3/uL (1.8-7.7) Lymphocytes # (Auto) 1.2 x10^3/uL (1.0-4.8) Monocytes # (Auto) 0.4 x10^3/uL (0.0-1.1) Eosinophils # (Auto) 0.0 x10^3/uL (0.0-0.7) Basophils # (Auto) 0.0 x10^3/uL (0.0-0.2) Prothrombin Time 13.2 SEC (11.7-14.0) Prothromb Time International Ratio 1.0 (0.8-1.1) Sodium Level 142 mmol/L (136-145) Potassium Level 3.9 mmol/L (3.5-5.1) Chloride Level 106 mmol/L (98-107) Carbon Dioxide Level 27 mmol/L (21-32) Anion Gap 9 (6-14) Blood Urea Nitrogen 12 mg/dL (7-20) Creatinine 1.2 mg/dL (0.6-1.0) Estimated GFR (Cockcroft-Gault) 55.4 BUN/Creatinine Ratio 10 (6-20) Glucose Level 137 mg/dL (70-99) Calcium Level 9.2 mg/dL (8.5-10.1) Total Bilirubin 0.4 mg/dL (0.2-1.0) Aspartate Amino Transf (AST/SGOT) 19 U/L (15-37) Alanine Aminotransferase (ALT/SGPT) 25 U/L (14-59) Alkaline Phosphatase 86 U/L (46-116) Troponin I Quantitative < 0.017 ng/mL (0.000-0.055) Total Protein 7.7 g/dL (6.4-8.2) Albumin 3.6 g/dL (3.4-5.0) Albumin/Globulin Ratio 0.9 (1.0-1.7) Lipase 189 U/L (73-393) Urine Collection Type Unknown Urine Color Yellow Urine Clarity Clear Urine pH 7.5 (<5.0-8.0) Urine Specific [place] 1.025 (1.000-1.030) Urine Protein Negative mg/dL (NEG-TRACE) Urine Glucose (UA) Negative mg/dL (NEG) Urine Ketones (Stick) Negative mg/dL (NEG) Urine Blood Negative (NEG) Urine Nitrite Negative (NEG) Urine Bilirubin Negative (NEG) Urine Urobilinogen Dipstick 0.2 mg/dL (0.2 mg/dL) Urine Leukocyte Esterase Large (NEG) Urine RBC Occ /HPF (0-2) Urine WBC 20-40 /HPF (0-4) Urine Squamous Epithelial Cells Many /LPF Urine Bacteria Many /HPF (0-FEW) Urine Mucus Mod /LPF Urine Opiates Screen Neg (NEG) Urine Methadone Screen Neg (NEG) Urine Barbiturates Neg (NEG) Urine Phencyclidine Screen Neg (NEG) Urine Amphetamine/Methamphetamine Neg (NEG) Urine Benzodiazepines Screen Neg (NEG) Urine Cocaine Screen Neg (NEG) Urine Cannabinoids Screen Neg (NEG) Urine Ethyl Alcohol Neg (NEG) Images: Images CXR Impression: No acute radiographic abnormality of the chest. CT abdomen pelvis Impression: 1. No acute abnormality seen to account for the patient's symptoms. 2. Hepatic steatosis. Assessment/Plan Assessment/Plan Intractable nausea vomiting concerning for atypical chest pain History of hepatitis C infection CAD Dyslipidemia Hypertension Appreciate GI recommendations Appreciate cardiac recommendations Try clears, ADAT, observe. 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 Repeat troponin. Check lipids and TSH Will restart home ranexa, metoprolol, ASA, and statin TTE if covid negative awaiting PCR Consider for outpt stress test. Lovenox for DVT prophylaxis IV Protonix GI prophylaxis CLD diet Full code Discussed with RN and SW Disposition inpatient care Surrogate decision maker is self RADHA FINNEY MD Jan 04, 2020 09:39
[2020-01-04 11:00] VITALS: BP 160/74
--- NOTE | 2020-01-04 11:27 | PDOC2 ---
CARDIAC CONSULT DATE OF CONSULT Date of Consult DATE: 01/04/20 TIME: 11:07 REASON FOR CONSULT Reason for Consult: Chest pain REFERRING PHYSICIAN Referring Physician: Michelle SOURCE Source: Chart review, Patient HISTORY OF PRESENT ILLNESS HISTORY OF PRESENT ILLNESS This is a pleasant 59 yo female admitted for complains chest pain and vomiting. Reports that in the last 2 days she has been having bouts of n/v. No hematemesis and no SOA but has been having some mild intermittent chest tightness as well not long lasting and rate at 2 in 0-10 scale. Reports that she has not been receiving full dose of her medications including ranexa due to her GI symptoms. No palpitations, no fever, intractable coughing and no recent falls or injury. She has had LHC possibly on 2018 and was told of small vessel disease hence she was placed on ranexa. No hx of routine NSAIDs or PUD. PAST MEDICAL HISTORY Past Medical History Cardiovascular: HTN, CAD Pulmonary: No pertinent hx CENTRAL NERVOUS SYSTEM: Seizure GI: Other (hiatal hernia), diverticulosis Heme/Onc: No pertinent hx Hepatobiliary: Hep C Psych: anxiety Musculoskeletal: OA Rheumatologic: No pertinent hx Infectious disease: No pertinent hx ENT: Other (cataract) Renal/: UTI Endocrine: Diabetes (2) Dermatology: Eczema (?) PAST SURGICAL HISTORY Past Surgical History Cataract Removal, , Hysterectomy, Other (D & Cs), LHC, hernia repair FAMILY HISTORY Family History Coronary Artery Disease (father) SOCIAL HISTORY Social History Smoke: No ALCOHOL: none Drugs: None Lives: with Family CURRENT MEDICATIONS CURRENT MEDICATIONS Current Medications Medications (Trade) Dose Ordered Sig/[place] Route PRN Reason Start Time Stop Time Status Last Admin Dose Admin Ondansetron HCl (Zofran) 4 mg 1X ONCE IVP 01/03/20 23:00 01/03/20 23:01 DC 01/03/20 23:09 Famotidine (Pepcid Vial) 20 mg 1X ONCE IVP 01/03/20 23:00 01/03/20 23:01 DC 01/03/20 23:10 Sodium Chloride 1,000 ml @ 1,000 mls/hr 1X ONCE IV 01/03/20 23:00 01/03/20 23:59 DC 01/03/20 23:00 Iohexol (Omnipaque 300 Mg/ml) 60 ml 1X ONCE IV 01/04/20 00:00 01/04/20 00:01 DC 01/03/20 23:51 Sodium Chloride 1,000 ml @ 100 mls/hr Q10H IV 01/04/20 01:00 01/05/20 00:59 01/04/20 02:23 Aspirin (Aspirin Chewable) 324 mg 1X ONCE PO 01/04/20 01:30 01/04/20 01:31 DC 01/04/20 02:23 ALLERGIES ALLERGIES: Coded Allergies: codeine (Verified Allergy, Intermediate, 03/25/15) meperidine (Verified Allergy, Intermediate, 07/26/14) sertraline (Verified Allergy, Intermediate, SEI, 07/26/14) ROS Review of System 14 point ROS evaluated with pertinent positives noted per HPI PHYSICAL EXAM General: Alert, Oriented X3, Cooperative, No acute distress HEENT: Atraumatic, Mucous membr. moist/pink Lungs: Clear to auscultation, Normal air movement Heart: Regular rate (SR), Normal S1, Normal S2 Abdomen: Soft, No tenderness, Other (obese) Skin: No breakdown, No significant lesion Neuro: Normal speech, Sensation intact Psych/Mental Status: Mental status NL, Mood NL MUSCULOSKELETAL: Osteoarthritic changes both hands VITALS/I&O VITALS/I&O: Vital Signs Date Time Temp Pulse Resp B/P (MAP) Pulse Ox O2 Delivery O2 Flow Rate FiO2 01/04/20 08:04 Room Air 01/04/20 03:37 97.0 69 14 144/65 (91) 99 97.0 LABS Lab: Laboratory Tests Test 01/03/20 23:03 01/04/20 01:00 White Blood Count 7.7 x10^3/uL (4.0-11.0) Red Blood Count 5.29 x10^6/uL (3.50-5.40) Hemoglobin 15.1 g/dL (12.0-15.5) Hematocrit 44.1 % (36.0-47.0) Mean Corpuscular Volume 84 fL (79-100) Mean Corpuscular Hemoglobin 29 pg (25-35) Mean Corpuscular Hemoglobin Concent 34 g/dL (31-37) Red Cell Distribution Width 15.3 % (11.5-14.5) H Platelet Count 190 x10^3/uL (140-400) Neutrophils (%) (Auto) 80 % (31-73) H Lymphocytes (%) (Auto) 15 % (24-48) L Monocytes (%) (Auto) 5 % (0-9) Eosinophils (%) (Auto) 0 % (0-3) Basophils (%) (Auto) 0 % (0-3) Neutrophils # (Auto) 6.1 x10^3/uL (1.8-7.7) Lymphocytes # (Auto) 1.2 x10^3/uL (1.0-4.8) Monocytes # (Auto) 0.4 x10^3/uL (0.0-1.1) Eosinophils # (Auto) 0.0 x10^3/uL (0.0-0.7) Basophils # (Auto) 0.0 x10^3/uL (0.0-0.2) Prothrombin Time 13.2 SEC (11.7-14.0) Prothrombin Time INR 1.0 (0.8-1.1) Sodium Level 142 mmol/L (136-145) Potassium Level 3.9 mmol/L (3.5-5.1) Chloride Level 106 mmol/L (98-107) Carbon Dioxide Level 27 mmol/L (21-32) Anion Gap 9 (6-14) Blood Urea Nitrogen 12 mg/dL (7-20) Creatinine 1.2 mg/dL (0.6-1.0) H Estimated GFR (Cockcroft-Gault) 55.4 BUN/Creatinine Ratio 10 (6-20) Glucose Level 137 mg/dL (70-99) H Calcium Level 9.2 mg/dL (8.5-10.1) Total Bilirubin 0.4 mg/dL (0.2-1.0) Aspartate Amino Transferase (AST) 19 U/L (15-37) Alanine Aminotransferase (ALT) 25 U/L (14-59) Alkaline Phosphatase 86 U/L (46-116) Troponin I Quantitative < 0.017 ng/mL (0.000-0.055) Total Protein 7.7 g/dL (6.4-8.2) Albumin 3.6 g/dL (3.4-5.0) Albumin/Globulin Ratio 0.9 (1.0-1.7) L Lipase 189 U/L (73-393) Urine Collection Type Unknown Urine Color Yellow Urine Clarity Clear Urine pH 7.5 (<5.0-8.0) Urine Specific [place] 1.025 (1.000-1.030) Urine Protein Negative mg/dL (NEG-TRACE) Urine Glucose (UA) Negative mg/dL (NEG) Urine Ketones (Stick) Negative mg/dL (NEG) Urine Blood Negative (NEG) Urine Nitrite Negative (NEG) Urine Bilirubin Negative (NEG) Urine Urobilinogen Dipstick 0.2 mg/dL (0.2 mg/dL) Urine Leukocyte Esterase Large (NEG) Urine RBC Occ /HPF (0-2) Urine WBC 20-40 /HPF (0-4) Urine Squamous Epithelial Cells Many /LPF Urine Bacteria Many /HPF (0-FEW) Urine Mucus Mod /LPF Urine Opiates Screen Neg (NEG) Urine Methadone Screen Neg (NEG) Urine Barbiturates Neg (NEG) Urine Phencyclidine Screen Neg (NEG) Urine Amphetamine/Methamphetamine Neg (NEG) Urine Benzodiazepines Screen Neg (NEG) Urine Cocaine Screen Neg (NEG) Urine Cannabinoids Screen Neg (NEG) Urine Ethyl Alcohol Neg (NEG) Laboratory Tests 01/03/20 23:03 Laboratory Tests 01/03/20 23:03 STRESS TEST STRESS TEST Conclusion 1. Treadmill exercise cardioisotope stress test did not show any evidence of ischemia or infarct. 2. Normal left ventricular systolic function with ejection fraction calculated at >80%. 3. Patient had good activity tolerance. Low risk for cardiac events. DATE: 02/25/17 1304 ASSESSMENT/PLAN ASSESSMENT/PLAN 1. Atypical CP: doubt ACS possibly GI 2. N/V with hiatal hernia: GI following 3. HTN: controlled 4. HLP: on goal 5. DM2 6. PUI 7. CAD; reported LHC at [facility] 2018 noted with small vessel disease no intervention and takes ranexa 8. Morbid obesity 9. CKD3? 10. UTI per PCP Recommendations 1. Repeat troponin. Check lipids and TSH 2. Will restart home ranexa, metoprolol, ECASA, and statin 3. TTE if covid negative awaiting PCR 4. Consider for outpt stress test. Will obtain [facility] records CRYSTAL BEYER APRN Jan 04, 2020 11:27
[2020-01-04 13:01] LABS: CHOLESTEROL/HDL RATIO 2.1
[2020-01-04] MEDS: RANOLAZINE 500 MG TAB.ER.12H PO SCH ×2 (13:20→21:46)
[2020-01-04] MEDS: METOPROLOL TART IMMED RELEASE 25 MG TABLET. PO SCH ×2 (13:20→21:47)
[2020-01-04 14:55] VITALS: BP 115/50
[2020-01-04] MEDS: ENOXAPARIN 40 MG/0.4 ML SYRINGE. SQ SCH (15:02)
--- NOTE | 2020-01-04 17:23 | NUR ---
SW following. Spoke with RN and reviewed chart. Pt on room air. Pt COVID pending. Pt positive for Hepatitis C. Spoke with pt. Pt lives with spouse and 2 sons. Pt stated no concerns about returning home at discharge. Cardiology and GI consulted. SW to follow as need.
[2020-01-04 19:30] VITALS: BP 143/68
[2020-01-04] MEDS: IBUPROFEN 400 MG TABLET. PO PRN (21:46)
[2020-01-04] MEDS: ATORVASTATIN CALCIUM 40 MG TABLET. PO SCH (21:46)
[2020-01-04 23:15] VITALS: BP 116/55
[2020-01-05 03:32] VITALS: BP 121/58
[2020-01-05 07:00] VITALS: BP 110/59
[2020-01-05] MEDS ORDERED: PANTOPRAZOLE IV PUSH 40 MG VIAL. IVP SCH (07:30)
[2020-01-05] MEDS: RANOLAZINE 500 MG TAB.ER.12H PO SCH ×2 (08:47→20:08)
[2020-01-05] MEDS: ASPIRIN ENTERIC COATED 81 MG TABLET.DR. PO SCH (08:47)
[2020-01-05] MEDS: METOPROLOL TART IMMED RELEASE 25 MG TABLET. PO SCH ×2 (08:48→20:09)
--- NOTE | 2020-01-05 08:54 | PDOC ---
CRYSTAL BEYER ACCOUNT REPRESENTATIVE 01/05/20 0854: CARDIO Progress Notes Date and Time Date of Service 01/05/2020 Time of Evaluation 1230 Subjective Subjective: No Chest Pain, No shortness of breath, No Palpitations Vitals Vitals Vital Signs Date Time Temp Pulse Resp B/P (MAP) Pulse Ox O2 Delivery O2 Flow Rate FiO2 01/05/20 08:48 68 110/59 01/05/20 03:32 97.8 24 96 Room Air 97.8 Weight Weight [ ] Input and Output Intake and Output Intake and Output 01/05/20 07:00 Intake Total 900 ml Output Total 1100 ml Balance -200 ml Intake Oral 900 ml Output Urine Total 1100 ml Laboratory Labs Laboratory Tests Test 01/04/20 12:35 Troponin I Quantitative < 0.017 ng/mL (0.000-0.055) Triglycerides Level 79 mg/dL (0-150) Cholesterol Level 159 mg/dL (0-200) LDL Cholesterol, Calculated 66 mg/dL (0-100) VLDL Cholesterol, Calculated 16 mg/dL (0-40) Non-HDL Cholesterol Calculated 82 mg/dL (0-129) HDL Cholesterol 77 mg/dL (40-60) Cholesterol/HDL Ratio 2.1 Thyroid Stimulating Hormone (TSH) 0.707 uIU/mL (0.358-3.74) Hepatitis C IgG Antibody Reactive (Nonreactive) Physical Exam HEENT: Neck Supple W Full Motion Chest: Symmetric LUNGS: Clear to Auscultation Heart: RRR (SR) Abdomen: Other (obese) Extremities: No Calf Tenderness Neurology: alert, oriented, follow commands Assessment Assessment 1. Atypical CP: doubt ACS possibly GI. Covid neg 2. N/V with hiatal hernia: GI following 3. HTN: controlled 4. HLP: on goal 5. DM2 6. PUI 7. CAD; reported LHC at [facility] 2018 noted with small vessel disease no interventi on and takes ranexa 8. Morbid obesity 9. CKD3? Cr stable 10. UTI per PCP Recommendations 1. Continue home ranexa, metoprolol, ECASA, and statin 3. TTE 4. Consider for outpt stress test. Will review [facility] records if available. Justicifation of Admission Dx: Justifications for Admission: Justification of Admission Dx: Yes VALERIANO SHAHID MD 01/05/20 1708: CARDIO Progress Notes Assessment Assessment Patient seen and evaluated Atypical CP: Small vessel coronary artery disease as noted below. Possibly GI. Continue medical treatment. Covid neg N/V with hiatal hernia: GI following HTN: controlled CAD; reported LHC at [facility] 2018 noted with small vessel disease no intervention and takes ranexa. Morbid obesity CRYSTAL BEYER APRN Jan 05, 2020 08:54 VALERIANO SHAHID MD Jan 05, 2020 17:08
[2020-01-05 11:00] VITALS: BP 153/92
--- NOTE | 2020-01-05 13:31 | DISCH ---
DISCHARGE INSTRUCTIONS Condition on Discharge Condition on Discharge: Stable Activity After Discharge Activity Instructions for Disc: Activity as tolerated Driving Instructions after Dis: Do not drive today Diet after Discharge Diet after Discharge: Regular Liquid Texture: Thin Liquid Contacting the DR. after DC Call your doctor for: If your condition worsens Follow-Up Follow up with: Follow-up with cardiology for your echo results Follow Up With: PCP within 1 week of discharge RADHA FINNEY MD Jan 05, 2020 13:31
--- NOTE | 2020-01-05 13:45 | PDOC ---
Date of Service: DATE: 01/05/20 TIME: 13:41 Subjective: Subjective: Better - wants to eat more. Objective: Objective: No GI concerns per nurse. Vital Signs: Vital Signs Date Time Temp Pulse Resp B/P (MAP) Pulse Ox O2 Delivery O2 Flow Rate FiO2 01/05/20 11:00 98.3 68 16 153/92 (112) 100 Room Air 98.3 Labs: Laboratory Tests Test 01/04/20 15:03 Coronavirus (PCR) Not detected URINE CULTURE Final Final GREATER THAN 100,000 CFU/ML Normal genitourinary dilip, not indicative of infection on 01/05/20 at 0937 PE: GEN: NAD LUNGS: CTAB HEART: RRR ABD: NABS, S/ND/NT NEURO/PSYCH: A & O 3 A/P: N/v - resolved H/o Hep C - reportedly treated - Ab +, PCR pending COVID negative -- ADAT, PO PPI. DC per primary. Justicifation of Admission Dx: Justifications for Admission: Justification of Admission Dx: Yes GERTRUDE BELL Jan 05, 2020 13:45
[2020-01-05 15:00] VITALS: BP 129/62
[2020-01-05] MEDS: ENOXAPARIN 40 MG/0.4 ML SYRINGE. SQ SCH (16:00)
--- NOTE | 2020-01-05 17:21 | NUR ---
SW following. Spoke with RN and reviewed chart. Pt on room air and plans to discharge home with family self-care. COVID negative. No further SW needs at this time.
--- NOTE | 2020-01-05 17:35 | NUR ---
Echo was ordered for today. Discharge was also ordered. I left message for cardiac services at 315pm. I paged Alberto DAMIAN and I spoke to Dr Reid. He will reach out to cardiology and see if Echo can be done as out patient. Pts COVID came back negative.
[2020-01-05 19:58] VITALS: BP 139/60
[2020-01-05] MEDS: ATORVASTATIN CALCIUM 40 MG TABLET. PO SCH (20:09)
[2020-01-05 23:09] VITALS: BP 128/61
[2020-01-05] MEDS: IBUPROFEN 400 MG TABLET. PO PRN (23:22)
[2020-01-06 03:15] VITALS: BP 132/67
[2020-01-06 07:20] VITALS: BP 173/79
[2020-01-06] MEDS: ASPIRIN ENTERIC COATED 81 MG TABLET.DR. PO SCH (07:29)
[2020-01-06] MEDS: PANTOPRAZOLE 40 MG TABLET.DR. PO SCH (07:29)
[2020-01-06] MEDS: METOPROLOL TART IMMED RELEASE 25 MG TABLET. PO SCH ×2 (07:30→21:36)
[2020-01-06] MEDS: RANOLAZINE 500 MG TAB.ER.12H PO SCH ×2 (07:31→21:36)
--- NOTE | 2020-01-06 07:43 | NUR ---
PT COMPLAINING OF CHEST DISCOMFORT. ORDERED 12 LEAD EKG AND SPOKE TO DR SHAHID. HE WILL SEE PT LATER THIS MORNING. NO NEW ORDERS AT THIS TIME.
--- NOTE | 2020-01-06 08:13 | EKG ---
[facility] [address] [place] [address] Test Date: 2020-01-06 Test Time: 08:05:50 Pat Name: ANASTASIA GOLDMAN Department: Room: [facility] Gender: F Engineering Department Chair: KARI : 1960 Requested By: RADHA FINNEY Order Number: [id number] Reading MD: Measurements Intervals [place] Rate: 55 P: 34 MA: 182 QRS: -7 QRSD: 72 T: 25 QT: 448 QTc: 431 Interpretive Statements SINUS RHYTHM LEFTWARD AXIS OTHERWISE NORMAL ECG RI6.02 Compared to ECG 01/03/2020 20:20:57 Left-axis deviation now present
[2020-01-06 11:49] VITALS: BP 139/69
--- NOTE | 2020-01-06 13:30 | PDOC ---
G I PROGRESS NOTE Subjective Says eating OK. No N, V. Still with some vague chest discomfort. Physical Exam Lungs clear. RRR Abdomen soft, not tender nor distended. Review of Relevant I have reviewed the following items alexia (where applicable) has been applied. Labs Laboratory Tests Test 01/04/20 15:03 Coronavirus (PCR) Not detected (Not Detected) Microbiology 01/04/20 Urine Culture - Final, Complete HCV PCR still pending. Vitals/I & O Vital Sign - Last 24 Hours 01/05/20 01/05/20 01/05/20 01/05/20 15:00 19:58 20:00 20:08 Temp 98.0 98.4 98.0 98.4 Pulse 66 71 Resp 18 20 B/P (MAP) 129/62 (84) 139/60 (86) 129/62 Pulse Ox 100 O2 Delivery Room Air Room Air 01/05/20 01/05/20 01/06/20 01/06/20 20:09 23:09 03:15 07:20 Temp 98.4 98.1 97.3 98.4 98.1 97.3 Pulse 65 60 66 Resp 20 20 22 B/P (MAP) 129/62 128/61 (83) 132/67 (88) 173/79 (110) Pulse Ox 98 O2 Delivery Room Air Room Air Room Air 01/06/20 01/06/20 01/06/20 07:30 07:31 11:49 Temp 98.0 98.0 Pulse 64 66 62 Resp 20 B/P (MAP) 173/79 173/79 139/69 (92) Pulse Ox 96 O2 Delivery Room Air Intake and Output 01/05/20 01/05/20 01/06/20 15:00 23:00 07:00 Intake Total 720 ml Output Total 500 ml 300 ml Balance 220 ml -300 ml Problem List Problems Medical Problems: (1) Chest pain Status: Acute (2) Person under investigation for COVID-19 Status: Acute (3) Vomiting Status: Acute Assessment N, V, better. Source unclear, but probably benign issue. Latent GERD? H/o treated HCV, successful? Plan of Care Note Continue as now. Await pending studies. Might consider empiric trial of PPI for some weeks. Justicifation of Admission Dx: Justifications for Admission: Justification of Admission Dx: Yes JOSSELYN LEYVA MD Jan 06, 2020 13:30
--- NOTE | 2020-01-06 14:08 | PDOC ---
[facility] PROGRESS NOTE Date of Service DOS: DATE: 01/05/20 TIME: 0800 Chief Complaint Chief Complaint Intractable nausea vomiting concerning for atypical chest pain History of hepatitis C infection CAD Dyslipidemia Hypertension Appreciate GI recommendations Appreciate cardiac recommendations Try clears, ADAT, observe. 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 Repeat troponin. Check lipids and TSH Will restart home ranexa, metoprolol, ASA, and statin TTE if covid negative awaiting PCR Consider for outpt stress test. Lovenox for DVT prophylaxis IV Protonix GI prophylaxis CLD diet Full code Discussed with RN and SW Disposition inpatient care Surrogate decision maker is self History of Present Illness History of Present Illness 59-year-old female with past medical history of CAD with possible small vessel disease, dyslipidemia, hypertension, seizure tics, who presents with 2 days of nausea vomiting and diaphoresis and weakness. She states that she is not able to keep any food down and therefore she needed to her to help her get into the car and come to the ED because of her weakness. She also did complain of some numbness on her left side of her mouth to her toes yesterday. This has improved. Patient does endorse appetite however she does not report any recent weight loss. Denies fevers, chest pain, abdominal pain, diarrhea, constipation, dysuria, or syncope. EGD on 08/11/06 w/ Dr. Lira for atypical chest pain showed minimal prepyloric gastritis and small hiatal hernia. Empiric esophageal dilation was performed. Colonoscopy on 08/07/14 w/ Dr. Radha Samayoa for screening was reportedly normal. Diverticulosis on CT. H/o Hep C from blood transfusion - says successfully treated w/ interferon. Hepatic steatosis on imaging. 01/05/2020 No acute events overnight. Patient is chest pain-free. Pending COVID and echo testing. Patient's chart, labs, images were reviewed and discussed with RN Vitals/I&O Vitals/I&O: Vital Signs Date Time Temp Pulse Resp B/P (MAP) Pulse Ox O2 Delivery O2 Flow Rate FiO2 01/06/20 11:49 98.0 62 20 139/69 (92) 96 Room Air 98.0 I & O 01/05/20 01/05/20 01/06/20 15:00 23:00 07:00 Intake Total 720 ml Output Total 500 ml 300 ml Balance 220 ml -300 ml Physical Exam Physical Exam: GEN: No apparent distress. Alert and oriented HEENT: Normal cephalic, atraumatic, external auditory canals are patent NECK: Supple, no JVD, no thyromegaly was noted LUNGS: Bilateral crackles HEART: RRR, S1, S2 present. Peripheral pulses intact, no obvious murmurs noted ABDOMEN: Obese, soft, nontender. Positive bowel sounds, no organomegaly, normal bowel sounds EXTREMITIES: Without clubbing, cyanosis, or edema. Pedal pulses intact. Negative Homans sign General: Alert, Oriented X3, Cooperative, No acute distress Heart: Regular rate (SR), Normal S1, Normal S2 Lungs: Clear Abdomen: Soft, No tenderness, Other (obese) Skin: No breakdown, No significant lesion Assessment and Plan Assessmemt and Plan Problems Medical Problems: (1) Chest pain Status: Acute (2) Person under investigation for COVID-19 Status: Acute (3) Vomiting Status: Acute Comment Review of Relevant I have reviewed the following items alexia (where applicable) has been applied. Medications: Current Medications Medications (Trade) Dose Ordered Sig/[place] Route PRN Reason Start Time Stop Time Status Last Admin Dose Admin Pantoprazole Sodium (Protonix) 40 mg DAILYAC PO 01/06/20 07:30 01/06/20 07:29 Justifications for Admission Other Justification RADHA FINNEY MD Jan 06, 2020 14:08
--- NOTE | 2020-01-06 14:10 | PDOC ---
[facility] PROGRESS NOTE Date of Service DOS: DATE: 01/06/20 TIME: 14:08 Chief Complaint Chief Complaint Intractable nausea vomiting concerning for atypical chest pain History of hepatitis C infection CAD Dyslipidemia Hypertension Appreciate GI recommendations Appreciate cardiac recommendations COVID negative Try clears, ADAT, observe. 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 Repeat troponin. Check lipids and TSH Will restart home ranexa, metoprolol, ASA, and statin TTE Consider for outpt stress test. Lovenox for DVT prophylaxis IV Protonix GI prophylaxis CLD diet Full code Discussed with RN and SW Disposition inpatient care Surrogate decision maker is self History of Present Illness History of Present Illness 59-year-old female with past medical history of CAD with possible small vessel disease, dyslipidemia, hypertension, seizure tics, who presents with 2 days of nausea vomiting and diaphoresis and weakness. She states that she is not able to keep any food down and therefore she needed to her to help her get into the car and come to the ED because of her weakness. She also did complain of some numbness on her left side of her mouth to her toes yesterday. This has improved. Patient does endorse appetite however she does not report any recent weight loss. Denies fevers, chest pain, abdominal pain, diarrhea, constipation, dysuria, or syncope. EGD on 08/11/06 w/ Dr. Lira for atypical chest pain showed minimal prepyloric gastritis and small hiatal hernia. Empiric esophageal dilation was performed. Colonoscopy on 08/07/14 w/ Dr. Radha Samayoa for screening was reportedly normal. Diverticulosis on CT. H/o Hep C from blood transfusion - says successfully treated w/ interferon. Hepatic steatosis on imaging. 01/05/2020 No acute events overnight. Patient is chest pain-free. Pending COVID and echo testing. Patient's chart, labs, images were reviewed and discussed with RN 01/06/2020 Patient had an episode of chest pain early this morning. Cardiology was consulted and will reevaluate. Pending TTE to be done. Patient's chart, labs, images were reviewed and discussed with RN Vitals/I&O Vitals/I&O: Vital Signs Date Time Temp Pulse Resp B/P (MAP) Pulse Ox O2 Delivery O2 Flow Rate FiO2 01/06/20 11:49 98.0 62 20 139/69 (92) 96 Room Air 98.0 I & O 01/05/20 01/05/20 01/06/20 15:00 23:00 07:00 Intake Total 720 ml Output Total 500 ml 300 ml Balance 220 ml -300 ml Physical Exam Physical Exam: GEN: No apparent distress. Alert and oriented HEENT: Normal cephalic, atraumatic, external auditory canals are patent NECK: Supple, no JVD, no thyromegaly was noted LUNGS: Bilateral crackles HEART: RRR, S1, S2 present. Peripheral pulses intact, no obvious murmurs noted ABDOMEN: Obese, soft, nontender. Positive bowel sounds, no organomegaly, normal bowel sounds EXTREMITIES: Without clubbing, cyanosis, or edema. Pedal pulses intact. Negative Homans sign General: Alert, Oriented X3, Cooperative, No acute distress Heart: Regular rate (SR), Normal S1, Normal S2 Lungs: Clear Abdomen: Soft, No tenderness, Other (obese) Skin: No breakdown, No significant lesion Assessment and Plan Assessmemt and Plan Problems Medical Problems: (1) Chest pain Status: Acute (2) Person under investigation for COVID-19 Status: Acute (3) Vomiting Status: Acute Comment Review of Relevant I have reviewed the following items alexia (where applicable) has been applied. Medications: Current Medications Medications (Trade) Dose Ordered Sig/[place] Route PRN Reason Start Time Stop Time Status Last Admin Dose Admin Pantoprazole Sodium (Protonix) 40 mg DAILYAC PO 01/06/20 07:30 01/06/20 07:29 Justifications for Admission Other Justification RADHA FINNEY MD Jan 06, 2020 14:10
[2020-01-06 15:44] VITALS: BP 144/71
[2020-01-06] MEDS: ENOXAPARIN 40 MG/0.4 ML SYRINGE. SQ SCH (18:34)
[2020-01-06 19:00] VITALS: BP 105/44
--- NOTE | 2020-01-06 21:30 | PDOC ---
[facility] PROGRESS NOTE Date of Service DOS: DATE: 01/05/20 TIME: 21:29 Chief Complaint Chief Complaint Intractable nausea vomiting concerning for atypical chest pain History of hepatitis C infection CAD Dyslipidemia Hypertension Appreciate GI recommendations Appreciate cardiac recommendations COVID negative Try clears, ADAT, observe. 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 Repeat troponin. Check lipids and TSH Will restart home ranexa, metoprolol, ASA, and statin TTE Consider for outpt stress test. Lovenox for DVT prophylaxis IV Protonix GI prophylaxis CLD diet Full code Discussed with RN and SW Disposition inpatient care Surrogate decision maker is self History of Present Illness History of Present Illness 59-year-old female with past medical history of CAD with possible small vessel disease, dyslipidemia, hypertension, seizure tics, who presents with 2 days of nausea vomiting and diaphoresis and weakness. She states that she is not able to keep any food down and therefore she needed to her to help her get into the car and come to the ED because of her weakness. She also did complain of some numbness on her left side of her mouth to her toes yesterday. This has improved. Patient does endorse appetite however she does not report any recent weight loss. Denies fevers, chest pain, abdominal pain, diarrhea, constipation, dysuria, or syncope. EGD on 08/11/06 w/ Dr. Lira for atypical chest pain showed minimal prepyloric gastritis and small hiatal hernia. Empiric esophageal dilation was performed. Colonoscopy on 08/07/14 w/ Dr. Radha Samayoa for screening was reportedly normal. Diverticulosis on CT. H/o Hep C from blood transfusion - says successfully treated w/ interferon. Hepatic steatosis on imaging. 01/05/2020 No acute events overnight. Patient is chest pain-free. Pending COVID and echo testing. Patient's chart, labs, images were reviewed and discussed with RN Vitals/I&O Vitals/I&O: Vital Signs Date Time Temp Pulse Resp B/P (MAP) Pulse Ox O2 Delivery O2 Flow Rate FiO2 01/06/20 19:00 98.4 66 16 105/44 (64) 95 Room Air 98.4 I & O 01/05/20 01/05/20 01/06/20 14:59 22:59 06:59 Intake Total 720 ml Output Total 500 ml 300 ml Balance 220 ml -300 ml Physical Exam Physical Exam: GEN: No apparent distress. Alert and oriented HEENT: Normal cephalic, atraumatic, external auditory canals are patent NECK: Supple, no JVD, no thyromegaly was noted LUNGS: Bilateral crackles HEART: RRR, S1, S2 present. Peripheral pulses intact, no obvious murmurs noted ABDOMEN: Obese, soft, nontender. Positive bowel sounds, no organomegaly, normal bowel sounds EXTREMITIES: Without clubbing, cyanosis, or edema. Pedal pulses intact. Negative Homans sign General: Alert, Oriented X3, Cooperative, No acute distress Heart: Regular rate (SR), Normal S1, Normal S2 Lungs: Clear Abdomen: Soft, No tenderness, Other (obese) Skin: No breakdown, No significant lesion Assessment and Plan Assessmemt and Plan Problems Medical Problems: (1) Chest pain Status: Acute (2) Person under investigation for COVID-19 Status: Acute (3) Vomiting Status: Acute Comment Review of Relevant I have reviewed the following items alexia (where applicable) has been applied. Medications: Current Medications Medications (Trade) Dose Ordered Sig/[place] Route PRN Reason Start Time Stop Time Status Last Admin Dose Admin Pantoprazole Sodium (Protonix) 40 mg DAILYAC PO 01/06/20 07:30 01/06/20 07:29 Justifications for Admission Other Justification RADHA FINNEY MD Jan 06, 2020 21:30
[2020-01-06] MEDS: ATORVASTATIN CALCIUM 40 MG TABLET. PO SCH (21:37)
[2020-01-06 23:00] VITALS: BP 156/86
[2020-01-07 03:00] VITALS: BP 137/65
[2020-01-07 07:13] VITALS: BP 144/65
[2020-01-07] MEDS: RANOLAZINE 500 MG TAB.ER.12H PO SCH (08:56)
[2020-01-07] MEDS: METOPROLOL TART IMMED RELEASE 25 MG TABLET. PO SCH (08:57)
[2020-01-07] MEDS: ASPIRIN ENTERIC COATED 81 MG TABLET.DR. PO SCH (08:57)
[2020-01-07] MEDS: PANTOPRAZOLE 40 MG TABLET.DR. PO SCH (08:57)
[2020-01-07 11:16] VITALS: BP 155/64
[2020-01-07] MEDS: ENOXAPARIN 40 MG/0.4 ML SYRINGE. SQ SCH (14:00)
[2020-01-07 15:10] LABS: HCV ULTRA QUANT PCR HCV Not Detected IU/mL (.)
--- NOTE | 2020-01-07 15:30 | NUR ---
PT DISCHARGED TO HOME WITH SPOUSE. DISCHARGE INSTRUCTIONS REVIEWED. QUESTIONS ANSWERED. 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
--- NOTE | 2020-01-08 21:52 | PDOC3 ---
[facility]-Discharge Summary Date of Admission: Date of Admission: Jan 04, 2020 Date of Discharge: Date of Discharge: Jan 07, 2020 Admission Diagnosis: Admitting Diagnosis: Intractable nausea vomiting concerning for atypical chest pain History of hepatitis C infection CAD Dyslipidemia Hypertension Discharge Diagnosis: Discharge Diagnosis: Intractable nausea vomiting concerning for atypical chest pain, likely GERD etiology History of hepatitis C infection CAD Dyslipidemia Hypertension Hospital Course: Hospital Course: 59-year-old female with past medical history of CAD with possible small vessel disease, dyslipidemia, hypertension, seizure tics, who presents with 2 days of nausea vomiting and diaphoresis and weakness. She states that she is not able to keep any food down and therefore she needed to her to help her get into the car and come to the ED because of her weakness. She also did complain of some numbness on her left side of her mouth to her toes yesterday. This has improved. Patient does endorse appetite however she does not report any recent weight loss. Denies fevers, chest pain, abdominal pain, diarrhea, constipation, dysuria, or syncope. EGD on 08/11/06 w/ Dr. Lira for atypical chest pain showed minimal prepyloric gastritis and small hiatal hernia. Empiric esophageal dilation was performed. Colonoscopy on 08/07/14 w/ Dr. Radha Samayoa for screening was reportedly normal. Diverticulosis on CT. H/o Hep C from blood transfusion - says successfully treated w/ interferon. Hepatic steatosis on imaging. Patient was admitted for further evaluation. Patient was continued on her home cardiac and anti-angina medications and her symptoms improved. She did have an episode of chest pain again on 01/05, but this resolved spontaneously. Cardiology to evaluate as an outpatient with TTE. GI recommends to continue with PPI Tx for a couple of months. The rest of the patient's hospital course was uneventful. Disposition: Disposition/Orders: D/C to Home Activity: Activity: Resume previous activity Diet: Diet: Cardiac Medications: Home Meds Active Scripts Aspirin (ASPIRIN EC) 81 Mg Tablet., 81 MG PO DAILYWBKFT for 30 Days, #30 TAB.SR Prov:ROMELIA BURK MD 02/25/17 Reported Medications Levetiracetam (LEVETIRACETAM) 750 Mg Tablet, 1 TAB PO BID for seizures 01/04/20 Cyclobenzaprine Hcl (CYCLOBENZAPRINE HCL) 5 Mg Tablet, 5 MG PO BID for muscle relaxer 01/04/20 Rosuvastatin Calcium (Rosuvastatin Calcium) 20 Mg Tablet, 1 TAB PO DAILY for high cholesterol 01/04/20 Gabapentin (Gabapentin) 300 Mg Capsule, 300 MG PO BID for neuropathy 01/04/20 Metoprolol Tartrate (METOPROLOL TARTRATE) 25 Mg Tablet, 1 TAB PO BID for HTN 01/04/20 Ranolazine (Ranolazine ER) 1,000 Mg Tab.er.12h, 1000 MG PO BID for angina 01/04/20 Discontinued Scripts Butalb/Acetaminophen/Caffeine (HOTLDZ-URPKRWGU-NDGU 50-325-40) 1 Each Tablet, 1 EACH PO Q6HRS PRN for HEADACHE, #14 TAB Prov:MARKHAMJOSSELYN DO 12/14/18 Scheduled Aspirin (Aspirin Ec), 81 MG PO DAILYWBKFT Cyclobenzaprine Hcl (Cyclobenzaprine Hcl), 5 MG PO BID, (Reported) Gabapentin (Gabapentin), 300 MG PO BID, (Reported) Levetiracetam (Levetiracetam), 1 TAB PO BID, (Reported) Metoprolol Tartrate (Metoprolol Tartrate), 1 TAB PO BID, (Reported) Ranolazine (Ranolazine ER), 1,000 MG PO BID, (Reported) Rosuvastatin Calcium (Rosuvastatin Calcium), 1 TAB PO DAILY, (Reported) Discontinued Medications Butalb/Acetaminophen/Caffeine (Rluwck-Wesvoncp-Yfrp 50-325-40), 1 EACH PO Q6HRS PRN for HEADACHE Total Time: Total Time: Total time spent was 35 minutes in preparing scripts, discharge planning with SW and RN, and preparing this discharge summary. Justicifation of Admission Dx: Justifications for Admission: Justification of Admission Dx: Yes RADHA FINNEY MD Jan 08, 2020 21:52
== END 2020-01-07 15:30 | disposition home or self-care (01) | DRG 392 ==
LOC: ER 18:35 → 6 SOUTH 01-04 01:16
PROVIDERS: ADMIT Family Medicine; ATTEND Family Medicine
DX: K21.9 Gastro-esophageal reflux disease without esophagitis (principal); N39.0 Urinary tract infection, site not specified; R07.89 Other chest pain; I25.10 Atherosclerotic heart disease of native coronary artery without angina pectoris; E11.22 Type 2 diabetes mellitus with diabetic chronic kidney disease; E11.51 Type 2 diabetes mellitus with diabetic peripheral angiopathy without gangrene; E66.01 Morbid (severe) obesity due to excess calories; E78.00 Pure hypercholesterolemia, unspecified; E78.5 Hyperlipidemia, unspecified; F41.9 Anxiety disorder, unspecified; I12.9 Hypertensive chronic kidney disease with stage 1 through stage 4 chronic kidney disease, or unspecified chronic kidney disease; K44.9 Diaphragmatic hernia without obstruction or gangrene; K57.90 Diverticulosis of intestine, part unspecified, without perforation or abscess without bleeding; K59.00 Constipation, unspecified; K76.0 Fatty (change of) liver, not elsewhere classified; N18.9 Chronic kidney disease, unspecified; R56.9 Unspecified convulsions; Z20.828 Contact with and (suspected) exposure to other viral communicable diseases; Z80.9 Family history of malignant neoplasm, unspecified; Z82.49 Family history of ischemic heart disease and other diseases of the circulatory system; Z90.710 Acquired absence of both cervix and uterus; K46.9 Unspecified abdominal hernia without obstruction or gangrene; Z68.39 Body mass index [BMI] 39.0-39.9, adult
CPT/HCPCS: 36415; 71045; 74177; 80053; 80061; 80307; 81001; 83690; 84443; 84484; 85025; 85610; 86803; 87086; 87522; 93005; 96361; 96374; 96375; C9113; J1650; J2405; J3490; J7030; Q9967; 99285-25; G0378; U0003-CS

== ENCOUNTER → 2020-02-14 | Outpatient (CLI) | payer OTHER ==
[~2020-02-14] MED LIST changes: +CYCL5TAB PO; +GABA300C9 PO; +LEVE750T8 PO; +METO25TA4 PO; +RANO10004 PO; +ROSU20TA28 PO
--- NOTE | 2020-02-14 12:42 | CARD ---
MR#: [id number] Date of Study: 02/14/2020 Ordering Physician: JACLYN FREITAS, Referring Physician: JACLYN FREITAS, Tech: Antonia Casiano APPROVED REPORT EXAM: Two-dimensional and M-mode echocardiogram with Doppler and color Doppler. Other Information Quality : GoodHR: 71bpm INDICATION Chest Pain RISK FACTORS Hypertension Hyperlipidemia 2D DIMENSIONS RVDd3.6 (2.9-3.5cm)Left Atrium(2D)3.4 (1.6-4.0cm) IVSd1.1 (0.7-1.1cm)Aortic Root(2D)2.4 (2.0-3.7cm) LVDd4.0 (3.9-5.9cm)LVOT Diameter1.9 (1.8-2.4cm) PWd1.0 (0.7-1.1cm)LVDs2.9 (2.5-4.0cm) FS (%) 26.8 %SV37.0 ml LVEF(%)52.8 (>50%) Aortic Valve AoV Peak Luis Alfredo.136.2cm/sAoV VTI28.1cm AO Peak GR.7.4mmHgLVOT Peak Luis Alfredo.125.3cm/s LVOT VTI 25.27cmAO Mean GR.4mmHg BENNY (VMAX)2.49ml3EYZ (VTI)2.67cm2 Mitral Valve MV E Xoepmngl99.1cm/sMV DECEL [id number] MV A Lvurhptn09.5cm/sMV E Mean Gr.2mmHg MV PVD15krR/A Ratio0.9 MVA (PHT)3.70cm2 TDI E/Lateral E'9.2E/Medial E'9.2 Pulmonary Valve PV Peak Durabili72.6cm/sPV Peak Grad.3mmHg Tricuspid Valve TR P. [id number]/sRAP [id number] TR Peak Gr.65djMqWLTZ60pbDf Pulmonary Vein S1 Vlfujnch02.4cm/sD2 Xwvlouso22.6cm/s PVa [id number] LEFT VENTRICLE The left ventricle is normal size. There is normal left ventricular wall thickness. The left ventricu lar systolic function is normal. The Ejection Fraction is 55-60%. There is normal LV segmental wall m otion. Transmitral Doppler flow pattern is Grade I-abnormal relaxation pattern. RIGHT VENTRICLE The right ventricle is normal size. There is normal right ventricular wall thickness. The right ventr icular systolic function is normal. ATRIA The left atrium size is normal. The right atrium size is normal. The interatrial septum is intact wit h no evidence for an atrial septal defect or patent foramen ovale as noted on 2-D or Doppler imaging. AORTIC VALVE The aortic valve is thickened but opens well. Doppler and Color Flow revealed no significant aortic r egurgitation. There is no significant aortic valvular stenosis. Calculated aortic valve area is 2.53 cm2 with maximum pressure gradient of 9 mmHg and mean pressure gradient of 5 mmHg. MITRAL VALVE The mitral valve is normal in structure and function. There is no evidence of mitral valve prolapse. There is no mitral valve stenosis. Doppler and Color-flow revealed trace mitral regurgitation. TRICUSPID VALVE The tricuspid valve is normal in structure and function. Doppler and Color Flow revealed trace tricus pid regurgitation with an estimated PAP of 30 mmHg. There is no tricuspid valve stenosis. PULMONIC VALVE The pulmonic valve is not well visualized. Doppler and Color Flow revealed trace pulmonic valvular re gurgitation. GREAT VESSELS The aortic root is normal in size. The ascending aorta is normal in size. The IVC is normal in size a nd collapses >50% with inspiration. PERICARDIAL EFFUSION There is no evidence of significant pericardial effusion. Critical Notification Critical Value: No <Conclusion> The left ventricular systolic function is normal. The Ejection Fraction is 55-60%. There is normal LV segmental wall motion. Transmitral Doppler flow pattern is Grade I-abnormal relaxation pattern. Trace mitral regurgitation. Trace tricuspid regurgitation with an estimated PAP of 30 mmHg. There is no evidence of significant pericardial effusion. Signed by : Eric Whitehead, Electronically Approved : 02/14/2020 12:41:36
== END ==
LOC: ECHO 08:45
PROVIDERS: ATTEND Internal Medicine Cardiovascular Disease
DX: R07.9 Chest pain, unspecified (principal)
CPT/HCPCS: 93306